=== PATIENT | male | born 1950 | race Caucasian/White ===

== ENCOUNTER 2018-03-13 18:30 | Inpatient (IN) ==
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
[2018-03-13 19:01] LABS: Basophils % 0.3 % (0.1-2.0); Eosinophils # 0.1 K/mm3 (0.0-0.4); Eosinophils % 1.2 % (0.1-12.0); Hematocrit 42.3 % (42.0-52.0); Hemoglobin 13.4 g/dL (14.1-18.0); Lymphocytes # 0.9 K/mm3 (0.7-4.5); Lymphocytes % 14.3 % (10-50); Mean Corpuscular HGB Conc 31.7 g/dL (31.8-35.4); Mean Corpuscular Hemoglobin 25.5 pg (27.0-31.2); Mean Corpuscular Volume 80.4 fl (80-94); Mean Platelet Volume 6.4 fl (7.4-10.4); Monocytes # 0.6 K/mm3 (0.1-1.0); Monocytes % 9.5 % (1.7-9.3); Neutrophils # 4.9 K/mm3 (1.8-7.8); Neutrophils % 74.7 % (37.0-80.0); Red Blood Count 5.27 M/mm3 (4.60-6.20); Red Cell Distribution Width 13.3 % (11.5-17.5); White Blood Count 6.5 K/mm3 (4.8-10.8)
[2018-03-13 19:04] LABS: Platelet Count 644 K/mm3 (142-424)
[2018-03-13 19:23] LABS: Alanine Aminotransferase 12 U/L (12-78); Albumin Level 1.8 gm/dL (3.4-5.0); Albumin/Globulin Ratio 0.3 (1.1-1.8); Alkaline Phosphatase 59 U/L (46-116); Anion Gap 10.2 mEq/L (5-15); Aspartate Amino Transferase 22 U/L (15-37); Bilirubin,Total 0.4 mg/dL (0.2-1.0); Blood Urea Nitrogen 10 mg/dL (7-18); Calcium 8.9 mg/dL (8.5-10.1); Carbon Dioxide 32 mmol/L (21.0-32.0); Chloride 101 mmol/L (98-107); Creatine Kinase 17 U/L (39-308); Globulin 5.3 gm/dl (1.3-3.2); Glucose 110 mg/dL (74-106); Potassium 3.2 mmoL/L (3.5-5.1); Sodium 140 mmol/L (136-145); Total Protein,Serum 7.1 gm/dL (6.4-8.2)
[2018-03-13 20:06] LABS: Thyroid Stimulating Hormone 1.42 uIU/ml (0.358-3.740); Uric Acid 4.1 mg/dL (2.6-7.2)
[2018-03-14 03:17] LABS: Microscopic, Urine URINE MICROSCOPIC (MICROSCOPIC)
[2018-03-14 03:19] LABS: Appearance,Urine CLEAR (Clear); Blood, Urine Negative (Negative); Color,Urine DK YELLOW (Yellow); Glucose,Urine (UA) Negative (Negative); Ketones,Urine TRACE (Negative); Leukocyte Esterase,Urine Negative (Negative); Protein,Urine TRACE (Negative); Specific Gravity, Urine 1.025 (1.005-1.030)
[2018-03-14 03:21] LABS: Bilirubin,Urine Negative (Negative)
[2018-03-14 03:22] LABS: Amorphous Sediment,Urine Trace /lpf; Mucus,Urine 4+ /lpf
[2018-03-14 06:57] LABS: Basophils % 0.6 % (0.1-2.0); Eosinophils # 0.1 K/mm3 (0.0-0.4); Eosinophils % 1.9 % (0.1-12.0); Hematocrit 36.9 % (42.0-52.0); Lymphocytes # 1.2 K/mm3 (0.7-4.5); Lymphocytes % 21.6 % (10-50); Mean Corpuscular HGB Conc 31.1 g/dL (31.8-35.4); Mean Corpuscular Hemoglobin 24.8 pg (27.0-31.2); Mean Corpuscular Volume 79.9 fl (80-94); Mean Platelet Volume 6.2 fl (7.4-10.4); Monocytes # 0.6 K/mm3 (0.1-1.0); Monocytes % 9.8 % (1.7-9.3); Neutrophils # 3.8 K/mm3 (1.8-7.8); Neutrophils % 66.2 % (37.0-80.0); Platelet Count 518 K/mm3 (142-424); Red Blood Count 4.62 M/mm3 (4.60-6.20); Red Cell Distribution Width 13.2 % (11.5-17.5); White Blood Count 5.7 K/mm3 (4.8-10.8)
[2018-03-14 07:06] LABS: Anion Gap 10.4 mEq/L (5-15); Calcium 8.5 mg/dL (8.5-10.1); Potassium 3.4 mmoL/L (3.5-5.1)
[2018-03-14 07:18] LABS: Hemoglobin 11.5 g/dL (14.1-18.0)
--- NOTE | 2018-03-14 07:23 | Pharmacy Consult Notes ---
[facility] Pharmacy VTE Monitoring - Patient Demographics Admission date: 03/13/18 Report Date: 03/14/18 Time: 07:22 Allergies/Adverse Reactions: Patient Allergies Penicillins [PENICILLINS] Allergy (Intermediate, Verified 03/13/18 19:27) I-HIVES Height: 1.78 m Weight: 92.079 kg Patient Problems: Current Active Problems Cellulitis of left leg without foot (Acute) Osteopenia determined by x-ray (Acute) - VTE Risk Labs: VTE Related Lab Results Hgb 11.5 g/dL (14.1-18.0) L D 03/14/18 06:25 Hct 36.9 % (42.0-52.0) L 03/14/18 06:25 Plt Count 518 K/mm3 (142-424) H 03/14/18 06:25 BUN 9 mg/dL (7-18) 03/14/18 06:25 Creatinine 0.71 mg/dL (0.70-1.30) 03/14/18 06:25 Estimated Creat Clear 90 mL/min (50-200) 03/14/18 06:25 VTE Score: 5 VTE Risk Level: Low Risk - Prophylaxis VTE Prophylaxis Ordered?: Yes Types of VTE Prophylaxis: Pharmacological Pharmacologic Type: Enoxaparin - VTE Diagnosis Confirmed Treatment or plan recommended: Continue Current Treatment
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
[2018-03-15 06:52] LABS: Basophils % 0.4 % (0.1-2.0); Eosinophils # 0.1 K/mm3 (0.0-0.4); Eosinophils % 1.7 % (0.1-12.0); Hematocrit 36.4 % (42.0-52.0); Hemoglobin 11.2 g/dL (14.1-18.0); Lymphocytes % 19.1 % (10-50); Mean Corpuscular HGB Conc 30.9 g/dL (31.8-35.4); Mean Corpuscular Hemoglobin 24.6 pg (27.0-31.2); Mean Corpuscular Volume 79.7 fl (80-94); Mean Platelet Volume 6.3 fl (7.4-10.4); Monocytes # 0.5 K/mm3 (0.1-1.0); Monocytes % 8.7 % (1.7-9.3); Neutrophils # 3.8 K/mm3 (1.8-7.8); Neutrophils % 70.1 % (37.0-80.0); Platelet Count 566 K/mm3 (142-424); Red Blood Count 4.56 M/mm3 (4.60-6.20); Red Cell Distribution Width 13.1 % (11.5-17.5); White Blood Count 5.4 K/mm3 (4.8-10.8)
[2018-03-15 06:59] LABS: Anion Gap 10.5 mEq/L (5-15); Calcium 8.6 mg/dL (8.5-10.1); Potassium 3.5 mmoL/L (3.5-5.1)
--- NOTE | 2018-03-15 09:05 | Progress Note ---
Internal Medicine - PN: Subj *Date: 03/15/18 *Time: 09:02 Interval history: Patient not sure how he feels today. He did sleep some during the night but nursing reports he had a period of confusion. He did eat a better breakfast this morning. He states his stomach sometimes hurts. Bowels have not moved since he has been here. He has not been out of bed. White blood cell count is normal. Potassium has normalized. Patient has a bed at [facility] when ready for discharge. Exam Vital signs and Labs for Last 24 Hours: Temp Pulse Resp BP Pulse Ox 100.1 F H 75 20 140/66 92 L 03/15/18 07:41 03/15/18 07:41 03/15/18 07:41 03/15/18 07:41 03/15/18 07:41 Laboratory Results - last 24 hr 03/15/18 06:30: WBC 5.4, RBC 4.56 L, Hgb 11.2 L, Hct 36.4 L, MCV 79.7 L, MCH 24.6 L, MCHC 30.9 L, RDW 13.1, Plt Count 566 H, MPV 6.3 L, Neut % (Auto) 70.1, Lymph % (Auto) 19.1, [place] % (Auto) 8.7, Eos % (Auto) 1.7, Baso % (Auto) 0.4, Neut # (Auto) 3.8, Lymph # (Auto) 1.0, [place] # (Auto) 0.5, Eos # (Auto) 0.1, Baso # (Auto) 0.0 03/15/18 06:30: Sodium 138, Potassium 3.5, Chloride 99, Carbon Dioxide 32, Anion Gap 10.5, BUN 11, Creatinine 0.79, Estimated Creat Clear 90, Estimated GFR 97, Est GFR ( Amer) 117, Glucose 90, Calcium 8.6 I & O for Last 24 hours: Intake & Output 03/12/18 03/13/18 03/14/18 03/15/18 11:59 11:59 11:59 11:59 Intake Total 1754 / 1754 2015 Output Total 350 / 350 1900 / 1900 Balance 1404 / 1404 116 / 116 Weight 203 lb - Constitutional no acute distress - *Routine Respiratory Exam Present: CTA bilaterally (Anteriorly and posteriorly) - *Routine Cardiovascular Exam Present: RRR - *Routine Abdominal Exam Present: soft, normoactive bowel sounds, tenderness Comments: Tender in right and left upper quadrants - *Routine Extremities Exam Comments: Bilateral lower extremities in Unna boots Assessment and Plan (1) Cellulitis of both lower extremities Current visit: Yes Status: Acute Category: Medical Code(s): L03.115 - Cellulitis of right lower limb; L03.116 - Cellulitis of left lower limb (2) Hypertension Current visit: Yes Status: Acute Category: Medical Code(s): I10 - Essential (primary) hypertension (3) Medical non-compliance Current visit: Yes Status: Acute Category: Medical Code(s): Z91.19 - Patient's noncompliance with other medical treatment and regimen (4) Debility Current visit: Yes Status: Acute Category: Medical Code(s): R53.81 - Other malaise (5) Depression Current visit: Yes Status: Acute Category: Medical Code(s): F32.9 - Major depressive disorder, single episode, unspecified - Assessment and plan all Dx Assessment and Plan for all problems:: Will start patient on sertraline. Consult physical therapy.
--- NOTE | 2018-03-15 12:07 | Pharmacy Consult Notes ---
- Pharmacy Consult Date: 03/15/18 Time: 12:05 Referring provider: DR. ROSARIO Reason for Consult:: VANCOMYCIN DOSING Allergies and ADEs:: Allergies Allergy/AdvReac Type Severity Reaction Status Date / Time Penicillins [PENICILLINS] Allergy Intermediate I-HIVES Verified 03/13/18 19:27 Home Medications:: Home Medications Medication Instructions Recorded Confirmed Type No Known Home Medications 03/13/18 03/13/18 History Height: 1.78 m Weight: 92.079 kg Laboratory Results:: Laboratory Results - last 24 hr 03/15/18 06:30: WBC 5.4, RBC 4.56 L, Hgb 11.2 L, Hct 36.4 L, MCV 79.7 L, MCH 24.6 L, MCHC 30.9 L, RDW 13.1, Plt Count 566 H, MPV 6.3 L, Neut % (Auto) 70.1, Lymph % (Auto) 19.1, [place] % (Auto) 8.7, Eos % (Auto) 1.7, Baso % (Auto) 0.4, Neut # (Auto) 3.8, Lymph # (Auto) 1.0, [place] # (Auto) 0.5, Eos # (Auto) 0.1, Baso # (Auto) 0.0 03/15/18 06:30: Sodium 138, Potassium 3.5, Chloride 99, Carbon Dioxide 32, Anion Gap 10.5, BUN 11, Creatinine 0.79, Estimated Creat Clear 90, Estimated GFR 97, Est GFR ( Amer) 117, Glucose 90, Calcium 8.6 Medical History: Reports:: Gastroesophageal Reflux Disease(GERD), Gastrointestinal Bleed, Hypertension, Ulcer Denies:: Cerebrovascular Accident, Diabetes Mellitus Type 1, Diabetes Mellitus Type 2, Home Oxygen, Seizures Assessment and Plan (1) Cellulitis of both lower extremities Current visit: Yes Status: Acute Category: Medical Code(s): L03.115 - Cellulitis of right lower limb; L03.116 - Cellulitis of left lower limb (2) Hypertension Current visit: Yes Status: Acute Category: Medical Code(s): I10 - Essential (primary) hypertension (3) Medical non-compliance Current visit: Yes Status: Acute Category: Medical Code(s): Z91.19 - Patient's noncompliance with other medical treatment and regimen (4) Debility Current visit: Yes Status: Acute Category: Medical Code(s): R53.81 - Other malaise (5) Depression Current visit: Yes Status: Acute Category: Medical Code(s): F32.9 - Major depressive disorder, single episode, unspecified - Assessment and plan all Dx Assessment and Plan for all problems:: BASED ON PATIENT FACTORS, RECOMMEND INITIATING VANCOMYCIN IV AT 1,750MG EVERY 12 HOURS. PHARMACY WILL OBTAIN TROUGH LEVEL PRIOR TO FOURTH DOSE AND WILL ADJUST DOSE APPROPRIATE AT THAT POINT. -JANE ARCOS, SHASHANKD
--- NOTE | 2018-03-16 08:12 | Progress Note ---
Internal Medicine - PN: Subj *Date: 03/16/18 *Time: 08:10 Interval history: Patient states he is feeling well this morning. He is complaining of some pain in his abdomen and his bilateral legs, worse on the right side. He states he slept better last night. He is tolerating breakfast this morning. Exam Vital signs and Labs for Last 24 Hours: Temp Pulse Resp BP Pulse Ox 99.1 F 64 16 135/62 96 03/16/18 03:59 03/16/18 03:59 03/16/18 03:59 03/16/18 03:59 03/16/18 03:59 I & O for Last 24 hours: Intake & Output 03/13/18 03/14/18 03/15/18 03/16/18 11:59 11:59 11:59 11:59 Intake Total 1754 / 1754 2015 Output Total 350 / 350 1900 / 1900 1275 / 1275 Balance 1404 / 1404 116 / 116 691 / 691 Weight 203 lb 203 lb Microbiology Reports for the Last 24 Hours: Microbiology 03/13/18 18:45 Blood Blood Culture - Preliminary Gram Positive Bacilli 03/13/18 18:45 Blood Blood Culture - Preliminary NO GROWTH AFTER 48 HOURS - Constitutional no acute distress - *Routine Respiratory Exam Present: CTA bilaterally - *Routine Cardiovascular Exam Present: RRR - *Routine Abdominal Exam Present: soft, normoactive bowel sounds, tenderness (diffuse) - *Routine Extremities Exam Comments: Legs are wrapped with unna boots bilaterally Assessment and Plan (1) Cellulitis of both lower extremities Current visit: Yes Status: Acute Category: Medical Code(s): L03.115 - Cellulitis of right lower limb; L03.116 - Cellulitis of left lower limb (2) Hypertension Current visit: Yes Status: Acute Category: Medical Code(s): I10 - Essential (primary) hypertension (3) Medical non-compliance Current visit: Yes Status: Acute Category: Medical Code(s): Z91.19 - Patient's noncompliance with other medical treatment and regimen (4) Debility Current visit: Yes Status: Acute Category: Medical Code(s): R53.81 - Other malaise (5) Depression Current visit: Yes Status: Acute Category: Medical Code(s): F32.9 - Major depressive disorder, single episode, unspecified - Assessment and plan all Dx Assessment and Plan for all problems:: Blood culture is growing gram-positive bacilli. Will await final culture and discuss further care with Dr. chacko.
--- NOTE | 2018-03-16 14:33 | Pharmacy Consult Notes ---
- Pharmacy Consult Date: 03/16/18 Time: 14:31 Referring provider: DR. ROSARIO Reason for Consult:: VANCOMYCIN TROUGH LEVEL Allergies and ADEs:: Allergies Allergy/AdvReac Type Severity Reaction Status Date / Time Penicillins [PENICILLINS] Allergy Intermediate I-HIVES Verified 03/13/18 19:27 Home Medications:: Home Medications Medication Instructions Recorded Confirmed Type No Known Home Medications 03/13/18 03/13/18 History Height: 1.78 m Weight: 92.079 kg Laboratory Results:: Laboratory Results - last 24 hr 03/16/18 11:58: Vancomycin Trough 16.5 Medical History: Reports:: Gastroesophageal Reflux Disease(GERD), Gastrointestinal Bleed, Hypertension, Ulcer Denies:: Cerebrovascular Accident, Diabetes Mellitus Type 1, Diabetes Mellitus Type 2, Home Oxygen, Seizures Assessment and Plan (1) Cellulitis of both lower extremities Current visit: Yes Status: Acute Category: Medical Code(s): L03.115 - Cellulitis of right lower limb; L03.116 - Cellulitis of left lower limb (2) Hypertension Current visit: Yes Status: Acute Category: Medical Code(s): I10 - Essential (primary) hypertension (3) Medical non-compliance Current visit: Yes Status: Acute Category: Medical Code(s): Z91.19 - Patient's noncompliance with other medical treatment and regimen (4) Debility Current visit: Yes Status: Acute Category: Medical Code(s): R53.81 - Other malaise (5) Depression Current visit: Yes Status: Acute Category: Medical Code(s): F32.9 - Major depressive disorder, single episode, unspecified - Assessment and plan all Dx Assessment and Plan for all problems:: BASED ON PATIENT FACTORS AND VANCOMYCIN TROUGH LEVEL, RECOMMEND CONTINUING VANCOMYCIN 1750 MG IV Q12H. PHARMACY WILL CONTINUE TO MONITOR CLOSELY AND ADJUST APPROPRIATE.
[2018-03-16 22:38] LABS: Microscopic, Urine URINE MICROSCOPIC (MICROSCOPIC)
[2018-03-16 22:39] LABS: Appearance,Urine Clear (Clear); Bilirubin,Urine Negative (Negative); Blood, Urine Negative (Negative); Color,Urine Yellow (Yellow); Glucose,Urine (UA) Negative (Negative); Ketones,Urine Negative (Negative); PH,Urine 7.5 (5.0-8.5); Protein,Urine Negative (Negative); Specific Gravity, Urine 1.015 (1.005-1.030)
[2018-03-16 22:40] LABS: Bacteria,Urine Trace /lpf; Leukocyte Esterase,Urine Negative (Negative)
--- NOTE | 2018-03-17 08:50 | Progress Note ---
Internal Medicine - PN: Subj *Date: 03/17/18 *Time: 08:48 Interval history: Patient states he feels about the same this morning. He states he rested off and on throughout the night and did eat all of his breakfast this am. He is still complaining of some pain in his legs. They were rewrapped yesterday. His abdominal pain has improved. Exam Vital signs and Labs for Last 24 Hours: Temp Pulse Resp BP Pulse Ox 98.9 F 63 18 144/74 H 92 L 03/17/18 08:00 03/17/18 08:00 03/17/18 08:00 03/17/18 08:00 03/17/18 08:00 Laboratory Results - last 24 hr 03/16/18 11:20: Urine Color Yellow, Urine Appearance Clear, Urine pH 7.5, Ur Specific Osse[place] 1.015, Urine Protein Negative, Urine Glucose (UA) Negative, Urine Ketones Negative, Urine Blood Negative, Urine Nitrate Negative, Urine Bilirubin Negative, Urine Urobilinogen 1.0, Ur Leukocyte Esterase Negative, Urine RBC None, Urine WBC 3-5, Ur Squamous Epith Cells 3-5, Urine Bacteria Trace 03/16/18 11:58: Vancomycin Trough 16.5 I & O for Last 24 hours: Intake & Output 03/14/18 03/15/18 03/16/18 03/17/18 11:59 11:59 11:59 11:59 Intake Total 1754 / 1754 2015 2326 / 2326 2768 / 2768 Output Total 350 / 350 1900 / 1900 1275 / 1275 2725 / 2725 Balance 1404 / 1404 116 / 116 1051 / 1051 43 / 43 Weight 203 lb 203 lb 203 lb Microbiology Reports for the Last 24 Hours: Microbiology 03/14/18 10:13 Leg,Left Gram Stain - Final 03/14/18 10:13 Leg,Left Wound Culture - Preliminary 03/13/18 18:45 Blood Blood Culture - Preliminary 03/16/18 18:45 Blood - Final Not Reportable 03/16/18 18:45 Blood - Final Not Reportable 03/16/18 18:45 Blood - Final Not Reportable 03/14/18 09:50 Leg,Right Gram Stain - Final 03/13/18 18:45 Blood Blood Culture - Preliminary Gram Positive Bacilli - Constitutional no acute distress - *Routine Respiratory Exam Present: CTA bilaterally - *Routine Cardiovascular Exam Present: RRR - *Routine Abdominal Exam Present: soft, normoactive bowel sounds. Absent: tenderness - *Routine Extremities Exam Present: edema (Unna boots in place) Assessment and Plan (1) Cellulitis of both lower extremities Current visit: Yes Status: Acute Category: Medical Code(s): L03.115 - Cellulitis of right lower limb; L03.116 - Cellulitis of left lower limb (2) Hypertension Current visit: Yes Status: Acute Category: Medical Code(s): I10 - Essential (primary) hypertension (3) Medical non-compliance Current visit: Yes Status: Acute Category: Medical Code(s): Z91.19 - Patient's noncompliance with other medical treatment and regimen (4) Debility Current visit: Yes Status: Acute Category: Medical Code(s): R53.81 - Other malaise (5) Depression Current visit: Yes Status: Acute Category: Medical Code(s): F32.9 - Major depressive disorder, single episode, unspecified (6) Bacteremia Current visit: Yes Status: Acute Category: Medical Code(s): R78.81 - Bacteremia - Assessment and plan all Dx Assessment and Plan for all problems:: Blood cultures are growing gram-positive bacilli. Will await final ID and sensitivities. Will continue antibiotics.
--- NOTE | 2018-03-18 09:03 | Progress Note ---
Internal Medicine - PN: Subj *Date: 03/18/18 *Time: 09:01 Interval history: Clinically he is very stable. He needs a dressing change again today. He will be discharged today to go to [facility] nursing facility. He can receive IV antibiotics and dressing changes there. Exam Vital signs and Labs for Last 24 Hours: Temp Pulse Resp BP Pulse Ox 98.9 F 72 18 134/62 93 L 03/18/18 07:40 03/18/18 07:40 03/18/18 07:40 03/18/18 07:40 03/18/18 07:45 I & O for Last 24 hours: Intake & Output 03/15/18 03/16/18 03/17/18 03/18/18 11:59 11:59 11:59 11:59 Intake Total 2015 2326 / 2326 2768 / 2768 3604 / 3604 Output Total 1900 / 1900 1275 / 1275 2725 / 2725 3700 / 3700 Balance 116 / 116 1051 / 1051 43 / 43 -96 / -96 Weight 203 lb 203 lb 194 lb 6 oz Microbiology Reports for the Last 24 Hours: Microbiology 03/13/18 18:45 Blood Blood Culture - Preliminary 03/14/18 10:13 Leg,Left Gram Stain - Final 03/14/18 10:13 Leg,Left Wound Culture - Preliminary Gram Positive Cocci 03/14/18 09:50 Leg,Right Gram Stain - Final 03/14/18 09:50 Leg,Right Wound Culture - Preliminary NO GROWTH AFTER 24 HOURS - Constitutional no acute distress - *Routine Respiratory Exam Present: CTA bilaterally - *Routine Cardiovascular Exam Present: RRR - *Routine Abdominal Exam Present: soft. Absent: tenderness - *Routine Extremities Exam Comments: Dressings are in place. Assessment and Plan (1) Cellulitis of both lower extremities Current visit: Yes Status: Acute Category: Medical Code(s): L03.115 - Cellulitis of right lower limb; L03.116 - Cellulitis of left lower limb (2) Hypertension Current visit: Yes Status: Acute Category: Medical Code(s): I10 - Essential (primary) hypertension (3) Medical non-compliance Current visit: Yes Status: Acute Category: Medical Code(s): Z91.19 - Patient's noncompliance with other medical treatment and regimen (4) Debility Current visit: Yes Status: Acute Category: Medical Code(s): R53.81 - Other malaise (5) Depression Current visit: Yes Status: Acute Category: Medical Code(s): F32.9 - Major depressive disorder, single episode, unspecified (6) Bacteremia Current visit: Yes Status: Acute Category: Medical Code(s): R78.81 - Bacteremia - Assessment and plan all Dx Assessment and Plan for all problems:: Discharged [facility].
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
[2018-03-18 09:30] LABS: Calcium 8.8 mg/dL (8.5-10.1)
--- NOTE | 2018-03-18 11:52 | Progress Note ---
Internal Medicine - PN: Subj *Date: 03/18/18 *Time: 11:51 Exam Vital signs and Labs for Last 24 Hours: Temp Pulse Resp BP Pulse Ox 98.9 F 72 18 134/62 93 L 03/18/18 07:40 03/18/18 07:40 03/18/18 07:40 03/18/18 07:40 03/18/18 07:45 Laboratory Results - last 24 hr 03/18/18 09:09: Sodium 136, Potassium 4.0, Chloride 100, Carbon Dioxide 31, Anion Gap 9.0, BUN 14, Creatinine 0.97, Estimated Creat Clear 86, Estimated GFR 77, Est GFR ( Amer) 93, Glucose 119 H, Calcium 8.8 I & O for Last 24 hours: Intake & Output 03/15/18 03/16/18 03/17/18 03/18/18 23:59 23:59 23:59 23:59 Intake Total 2659 / 2659 2948 / 2948 1982 / 1982 2644 / 2644 Output Total 1950 / 1950 2024 / 2024 3625 / 3625 2099 / 2099 Balance 709 / 709 923 / 923 -1642 / -1642 544 / 544 Weight 92.079 kg 92.079 kg 88.592 kg Microbiology Reports for the Last 24 Hours: Microbiology 03/14/18 09:50 Leg,Right Gram Stain - Final 03/14/18 09:50 Leg,Right Wound Culture - Preliminary NO GROWTH AFTER 48 HOURS 03/13/18 18:45 Blood Blood Culture - Preliminary 03/14/18 10:13 Leg,Left Gram Stain - Final 03/14/18 10:13 Leg,Left Wound Culture - Preliminary Gram Positive Cocci Assessment and Plan (1) Cellulitis of both lower extremities Current visit: Yes Status: Acute Category: Medical Code(s): L03.115 - Ce llulitis of right lower limb; L03.116 - Cellulitis of left lower limb (2) Hypertension Current visit: Yes Status: Acute Category: Medical Code(s): I10 - Essential (primary) hypertension (3) Medical non-compliance Current visit: Yes Status: Acute Category: Medical Code(s): Z91.19 - Patient's noncompliance with other medical treatment and regimen (4) Debility Current visit: Yes Status: Acute Category: Medical Code(s): R53.81 - Other malaise (5) Depression Current visit: Yes Status: Acute Category: Medical Code(s): F32.9 - Major depressive disorder, single episode, unspecified (6) Bacteremia Current visit: Yes Status: Acute Category: Medical Code(s): R78.81 - Bacteremia The patient's infection will respond to the chosen ABx?: Yes Is the patient receiving the right drug, dose, and route?: Yes Could a more targeted ABx be ordered?: No (SENSITIVIES NOT BACK)
[2018-03-18 12:23] LABS: Anion Gap 8.1 mEq/L (5-15); Calcium 8.9 mg/dL (8.5-10.1); Potassium 4.1 mmoL/L (3.5-5.1)
--- NOTE | 2018-03-18 13:55 | Pharmacy Consult Notes ---
- Pharmacy Consult Date: 03/18/18 Time: 13:51 Referring provider: DR. ROSARIO Reason for Consult:: VANCOMYCIN TROUGH LEVEL Allergies and ADEs:: Allergies Allergy/AdvReac Type Severity Reaction Status Date / Time Penicillins [PENICILLINS] Allergy Intermediate I-HIVES Verified 03/13/18 19:27 Home Medications:: Home Medications Medication Instructions Recorded Confirmed Type Sertraline HCl [Zoloft 50mg tablet] 50 mg PO DAILY #30 tablet 03/18/18 Rx Triamterene/Hydrochlorothiazid 1 each PO DAILY #30 tablet 03/18/18 Rx [Maxzide-25 tablet] Vancomycin HCl [Vancomycin 1000mg 1,750 mg IV Q12H #7 vial 03/18/18 Rx Vial] Height: 1.78 m Weight: 88.592 kg Laboratory Results:: Laboratory Results - last 24 hr 03/18/18 09:09: Sodium 136, Potassium 4.0, Chloride 100, Carbon Dioxide 31, Anion Gap 9.0, BUN 14, Creatinine 0.97, Estimated Creat Clear 86, Estimated GFR 77, Est GFR ( Amer) 93, Glucose 119 H, Calcium 8.8 03/18/18 12:05: Vancomycin Trough 25.8 H 03/18/18 12:05: Sodium 136, Potassium 4.1, Chloride 99, Carbon Dioxide 33 H, Anion Gap 8.1, BUN 16, Creatinine 0.95, Estimated Creat Clear 86, Estimated GFR 78, Est GFR ( Amer) 95, Glucose 94 D, Calcium 8.9 Medical History: Reports:: Gastroesophageal Reflux Disease(GERD), Gastrointestinal Bleed, Hypertension, Ulcer Denies:: Cerebrovascular Accident, Diabetes Mellitus Type 1, Diabetes Mellitus Type 2, Home Oxygen, Seizures Assessment and Plan (1) Cellulitis of both lower extremities Current visit: Yes Status: Acute Category: Medical Code(s): L03.115 - Cellulitis of right lower limb; L03.116 - Cellulitis of left lower limb (2) Hypertension Current visit: Yes Status: Acute Category: Medical Code(s): I10 - Essential (primary) hypertension (3) Medical non-compliance Current visit: Yes Status: Acute Category: Medical Code(s): Z91.19 - Patient's noncompliance with other medical treatment and regimen (4) Debility Current visit: Yes Status: Acute Category: Medical Code(s): R53.81 - Other malaise (5) Depression Current visit: Yes Status: Acute Category: Medical Code(s): F32.9 - Major depressive disorder, single episode, unspecified (6) Bacteremia Current visit: Yes Status: Acute Category: Medical Code(s): R78.81 - Bacteremia - Assessment and plan all Dx Assessment and Plan for all problems:: BASED ON PATIENT FACTORS AND VANCOMYCIN TROUGH LEVEL, RECOMMEND CHANGING DOSE AND INTERVAL TO VANCOMYCIN 1500 MG IV Q18H STARTING TOMORROW MORNING AT 0900 FOR 7 MORE DAYS. DISCHARGE MEDICATIONS WERE ALREADY ENTERED BY DR ROSARIO AFTER TROUGH LEVEL RETURNED. CALLED NURSE TO HAVE HER PASS ON NEW DOSE TO CORRECTION. ALSO CALLED [facility] AND GAVE THE SAME MESSAGE TO RN.
== END 2018-03-18 14:00 | DRG 603 ==
LOC: 2ND 18:30 → ER 18:30 → OBSVTOIN 21:19 → 2ND 21:20
PROVIDERS: ADMIT Family Medicine; ATTEND Family Medicine
CPT/HCPCS: 36415; 36569; 71010; 71045; 73590; 73620; 80048; 80053; 80202; 81001; 82550; 82553; 83605; 84443; 84484; 84550; 85025; 87040; 87070; 87077; 87186; 87205; 90471; 90715; 93005; 96365; 97110; 97162; 97530; 99284; C1751; J1956; J3370

== ENCOUNTER → 2018-03-22 10:59 | Outpatient (CLI) | payer MEDICARE, SELFPAY ==
[2018-03-22 12:42] LABS: Anion Gap 8.7 mEq/L (5-15); Blood Urea Nitrogen 14 mg/dL (7-18); Calcium 8.7 mg/dL (8.5-10.1); Carbon Dioxide 36 mmol/L (21.0-32.0); Chloride 97 mmol/L (98-107); Creatinine,Serum 0.88 mg/dL (0.70-1.30); Estimated Glomerular Filt Rate 86 ml/min (>60); GFR (African American) 104 ML/MIN (>60); Glucose 87 mg/dL (74-106); Potassium 3.7 mmoL/L (3.5-5.1); Sodium 138 mmol/L (136-145)
[2018-03-22 13:05] LABS: Vancomycin,Trough 9.3 mcg/ml (10.0-20.0)
== END ==
PROVIDERS: Visit Provider Emergency Medicine
DX: I10 Essential (primary) hypertension (principal); Z51.81 Encounter for therapeutic drug level monitoring
CPT/HCPCS: 36415; 80048; 80202

== ENCOUNTER 2018-05-27 18:20 | Emergency (ER) | payer MEDICARE, MEDICAID, SELFPAY ==
[2018-05-27 18:21] VITALS: BMI 32.4
--- NOTE | 2018-05-27 18:21 | XR_ITS ---
XR chest portable HISTORY: ITS.REASON: chest pain ORDERING PHYSICIAN: Heber Vidal MD PATIENT AGE: 68 years COMPARISON: Portable semiupright chest 04/14/2018 FINDINGS: The cardiomediastinal silhouette and pulmonary vascularity are within normal limits considering a somewhat poor inspiration. The lungs are clear without infiltrates, suspicious nodules, or pleural effusions. No acute bony abnormalities. IMPRESSION: Negative chest, no acute finding
--- NOTE | 2018-05-27 18:22 | HMH.EDGENADL ---
ED Disposition Clinical Impression: Atypical chest pain, Blurry vision Dysphagia Qualifiers: Dysphagia type: unspecified Qualified Code(s): R13.10 - Dysphagia, unspecified Headache Qualifiers: Headache type: unspecified Headache chronicity pattern: episodic headache Intractability: not intractable Qualified Code(s): R51 - Headache Abdominal pain Qualifiers: Abdominal location: unspecified location Qualified Code(s): R10.9 - Unspecified abdominal pain Disposition: [facility] Condition on Discharge: Good Instructions: DI for Atypical Chest Pain, DI for Esophageal Dysphagia Additional Instructions: Additional instructions for CHEST PAIN: See your physician as soon as possible for further evaluation. Return immediately if worsening chest pain, vomiting, shortness of breath, fever, coughing of blood. Referrals: Provider,Referral, [Referring] - - Critical Care Critical Care Time: No Attestation: On , the high probability of a clinically significant, sudden or life threatening deterioration of the following system(s) required my full and direct attention, intervention and personal management. The time I documented below is in addition to time spent performing reported procedures but includes the following listed in this critical care notation. Medical Decision Making - Andi Inquiry Pt receiving controlled substance: No Vital Signs: 05/27/18 18:25 05/27/18 19:05 Temperature 98.0 F Temperature Source Temporal Artery Scan Pulse Rate [Right Radial] 75 69 Respiratory Rate 20 Blood Pressure [Right Arm] 146/73 H 177/77 H Blood Pressure Mean [Right Arm] 97 110 Blood Pressure Source [Right Arm] Automatic Cuff Blood Pressure Position [Right Arm] Sitting 02 Sat by Pulse Oximetry 98 96 Oxygen Delivery Method Room Air - Lab Data Lab Results 05/27/18 18:20: Lipase 153 05/27/18 18:25: WBC 7.2, RBC 4.45 L, Hgb 10.4 L, Hct 34.1 L, MCV 76.5 L, MCH 23.4 L, MCHC 30.6 L, RDW 13.8, Plt Count 529 H, MPV 6.3 L, Neut % (Auto) 71.0, Lymph % (Auto) 19.7, Davidson % (Auto) 7.1, Eos % (Auto) 1.5, Baso % (Auto) 0.6, Neut # (Auto) 5.1, Lymph # (Auto) 1.4, Davidson # (Auto) 0.5, Eos # (Auto) 0.1, Baso # (Auto) 0.1 05/27/18 18:25: Sodium 132 L, Potassium 3.4 L, Chloride 96 L, Carbon Dioxide 33 H, Anion Gap 6.4, BUN 13, Creatinine 0.86, Estimated Creat Clear 100, Estimated GFR 88, Est GFR ( Amer) 106, Glucose 103, Calcium 9.1, Troponin I < 0.02 Result diagrams: 05/27/18 18:25 05/27/18 18:25 - ECG Data Tracing #1 EKG interpreted by Heber Vidal MD: Rhythm: sinus Rate: 77 Left bundle branch block, old - Physician Consults Physician Consulted: Destiny - present Time: 20:10 Reason -: Pt condition Comment/Response: He spoke with patient. Discharge back to intermediate. He will follow-up, plans on ordering swallowing study. Medical Decision Narrative: 7:05 PM: Drank a whole glass of water in the emergency department without any difficulty swallowing and no choking. General Adult HPI - General Stated complaint: chest pain Time Seen by Provider: 05/27/18 18:40 - History of Present Illness HPI narrative: Patient brought in by ambulance from [facility]. Patient is a poor historian. He says that he has been having episodes for 3 weeks, a couple of times a day. He says that he feels like he is choking and coughing, then he gets a pain in his throat that goes up into his head and feels like somebody is hitting him in the head with a 2 pound hammer. He gets blurry vision with it. He says the pain then goes down into his chest and down into his abdomen and around his back and feels like somebody is stabbing him in ripping his abdomen open. He says he slumped over and feels like he is going to pass out. Symptoms typically last about an hour. He says he had 2 episodes today, both resolved. He was seen by Dr. Young for ENT evaluation because of episodes of choking and coughing on Wednesday.
[2018-05-27 18:25] VITALS: BP 146/73; PULSE 75; RESP 20; TEMP 36.7; O2SAT 98; BMI 32.4
--- NOTE | 2018-05-27 18:26 | ED_ITS ---
ED Disposition Clinical Impression: Atypical chest pain, Blurry vision Dysphagia Qualifiers: Dysphagia type: unspecified Qualified Code(s): R13.10 - Dysphagia, unspecified Headache Qualifiers: Headache type: unspecified Headache chronicity pattern: episodic headache Intractability: not intractable Qualified Code(s): R51 - Headache Abdominal pain Qualifiers: Abdominal location: unspecified location Qualified Code(s): R10.9 - Unspecified abdominal pain Disposition: [facility] Condition on Discharge: Good Instructions: DI for Atypical Chest Pain, DI for Esophageal Dysphagia Additional Instructions: Additional instructions for CHEST PAIN: See your physician as soon as possible for further evaluation. Return immediately if worsening chest pain, vomiting, shortness of breath, fever, coughing of blood. Referrals: Provider,Referral, [Referring] - - Critical Care Critical Care Time: No Attestation: On , the high probability of a clinically significant, sudden or life threatening deterioration of the following system(s) required my full and direct attention, intervention and personal management. The time I documented below is in addition to time spent performing reported procedures but includes the following listed in this critical care notation. Medical Decision Making - Andi Inquiry Pt receiving controlled substance: No Vital Signs: 05/27/18 18:25 05/27/18 19:05 Temperature 98.0 F Temperature Source Temporal Artery Scan Pulse Rate [Right Radial] 75 69 Respiratory Rate 20 Blood Pressure [Right Arm] 146/73 H 177/77 H Blood Pressure Mean [Right Arm] 97 110 Blood Pressure Source [Right Arm] Automatic Cuff Blood Pressure Position [Right Arm] Sitting 02 Sat by Pulse Oximetry 98 96 Oxygen Delivery Method Room Air - Lab Data Lab Results 05/27/18 18:20: Lipase 153 05/27/18 18:25: WBC 7.2, RBC 4.45 L, Hgb 10.4 L, Hct 34.1 L, MCV 76.5 L, MCH 23.4 L, MCHC 30.6 L, RDW 13.8, Plt Count 529 H, MPV 6.3 L, Neut % (Auto) 71.0, Lymph % (Auto) 19.7, Clarke % (Auto) 7.1, Eos % (Auto) 1.5, Baso % (Auto) 0.6, Neut # (Auto) 5.1, Lymph # (Auto) 1.4, Clarke # (Auto) 0.5, Eos # (Auto) 0.1, Baso # (Auto) 0.1 05/27/18 18:25: Sodium 132 L, Potassium 3.4 L, Chloride 96 L, Carbon Dioxide 33 H, Anion Gap 6.4, BUN 13, Creatinine 0.86, Estimated Creat Clear 100, Estimated GFR 88, Est GFR ( Amer) 106, Glucose 103, Calcium 9.1, Troponin I < 0.02 Result diagrams: 05/27/18 18:25 05/27/18 18:25 - ECG Data Tracing #1 EKG interpreted by Heber Vidal MD: Rhythm: sinus Rate: 77 Left bundle branch block, old - Physician Consults Physician Consulted: Destiny - present Time: 20:10 Reason -: Pt condition Comment/Response: He spoke with patient. Discharge back to retirement. He will follow-up, plans on ordering swallowing study. Medical Decision Narrative: 7:05 PM: Drank a whole glass of water in the emergency department without any difficulty swallowing and no choking. General Adult HPI - General Stated complaint: chest pain Time Seen by Provider: 05/27/18 18:40 - History of Present Illness HPI narrative: Patient brought in by ambulance from [facility]. Patient is a poor historian. He says that he has been having
[2018-05-27 18:32] LABS: Basophils # 0.1 K/mm3 (0-0.2); Basophils % 0.6 % (0.1-2.0); Eosinophils # 0.1 K/mm3 (0.0-0.4); Eosinophils % 1.5 % (0.1-12.0); Hematocrit 34.1 % (42.0-52.0); Hemoglobin 10.4 g/dL (14.1-18.0); Lymphocytes # 1.4 K/mm3 (0.7-4.5); Lymphocytes % 19.7 % (10-50); Mean Corpuscular HGB Conc 30.6 g/dL (31.8-35.4); Mean Corpuscular Hemoglobin 23.4 pg (27.0-31.2); Mean Corpuscular Volume 76.5 fl (80-94); Mean Platelet Volume 6.3 fl (7.4-10.4); Monocytes # 0.5 K/mm3 (0.1-1.0); Monocytes % 7.1 % (1.7-9.3); Neutrophils # 5.1 K/mm3 (1.8-7.8); Platelet Count 529 K/mm3 (142-424); Red Blood Count 4.45 M/mm3 (4.60-6.20); Red Cell Distribution Width 13.8 % (11.5-17.5); White Blood Count 7.2 K/mm3 (4.8-10.8)
--- NOTE | 2018-05-27 18:39 | PC.NURSE ---
rad at BS
[2018-05-27 18:54] LABS: Anion Gap 6.4 mEq/L (5-15); Blood Urea Nitrogen 13 mg/dL (7-18); Calcium 9.1 mg/dL (8.5-10.1); Carbon Dioxide 33 mmol/L (21.0-32.0); Chloride 96 mmol/L (98-107); Creatinine Clearance Estimated 100 mL/min (50-200); Creatinine,Serum 0.86 mg/dL (0.70-1.30); Estimated Glomerular Filt Rate 88 ml/min (>60); GFR (African American) 106 ML/MIN (>60); Glucose 103 mg/dL (74-106); Potassium 3.4 mmoL/L (3.5-5.1); Sodium 132 mmol/L (136-145); Troponin I < 0.02 ng/ml (0.00-0.06)
[2018-05-27 19:05] VITALS: BP 177/77; PULSE 69; O2SAT 96
[2018-05-27 19:17] LABS: Lipase 153 u/L (73-393)
--- NOTE | 2018-05-27 19:25 | PC.NURSE ---
shift change report given to OZZY Akers
[2018-05-27 20:28] VITALS: BP 170/95; PULSE 68; RESP 20; TEMP 36.6; O2SAT 98
[2018-05-27 22:00] VITALS: BP 177/95; PULSE 68; RESP 21; O2SAT 95
[2018-05-27 22:24] VITALS: BP 177/95; PULSE 60; RESP 20; TEMP 36.6; O2SAT 94
== END 2018-05-27 22:27 ==
PROVIDERS: Emergency Provider Emergency Medicine; PCP Emergency Medicine
DX: R07.89 Other chest pain (principal); H53.8 Other visual disturbances; R13.10 Dysphagia, unspecified; K21.9 Gastro-esophageal reflux disease without esophagitis; E78.5 Hyperlipidemia, unspecified; I10 Essential (primary) hypertension; Z87.891 Personal history of nicotine dependence
CPT/HCPCS: 71045; 80048; 83690; 84484; 85025; 93005; 99284

== ENCOUNTER → 2018-06-03 09:13 | Outpatient (CLI) | payer SELFPAY ==
--- NOTE | 2018-06-03 09:16 | FL_ITS ---
EXAM: Barium swallow/esophagram. INDICATION: ITS.REASON: DYSPHAGIA, COUGH WHILE EATING ORDERING PHYSICIAN: Vlad Dixon MD PATIENT AGE: 68 years COMPARISON: None The patient was not able to stand for the exam. Images performed in the right lateral and right posterior oblique position. The esophagus has an unremarkable appearance. No obstructing lesions. No internal filling defects. No hiatal hernia. Fluoroscopy time: 42 seconds. IMPRESSION: Unremarkable barium swallow
== END ==
PROVIDERS: PCP Emergency Medicine; Visit Provider Emergency Medicine
DX: R13.10 Dysphagia, unspecified (principal)
CPT/HCPCS: 74220

== ENCOUNTER → 2018-08-09 10:04 | Outpatient (CLI) | payer MEDICARE, MEDICAID, SELFPAY | PROVIDERS: PCP Emergency Medicine; Visit Provider Physician Assistant | DX: I44.7 Left bundle-branch block, unspecified (principal); R55 Syncope and collapse; R06.09 Other forms of dyspnea | CPT/HCPCS: 93270 ==

== ENCOUNTER → 2018-11-07 10:20 | Outpatient (POV) | payer MEDICARE, MEDICAID, SELFPAY | PROVIDERS: PCP Emergency Medicine; Visit Provider Nurse Practitioner Family | DX: Z00.00 Encounter for general adult medical examination without abnormal findings (principal) ==

== ENCOUNTER → 2018-12-10 10:00 | Outpatient (CLI) | payer MEDICARE, MEDICAID, SELFPAY ==
[2018-12-13 12:07] LABS: Occult Blood,Stool Negative (Negative)
== END ==
PROVIDERS: Visit Provider Internal Medicine Gastroenterology
DX: D50.9 Iron deficiency anemia, unspecified (principal)
CPT/HCPCS: 82272; G0328

== ENCOUNTER → 2018-12-11 10:00 | Outpatient (CLI) | payer MEDICARE, MEDICAID, SELFPAY ==
[2018-12-13 12:07] LABS: Occult Blood,Stool Negative (Negative)
== END ==
PROVIDERS: Visit Provider Internal Medicine Gastroenterology
DX: D50.9 Iron deficiency anemia, unspecified (principal)
CPT/HCPCS: 82272; G0328

== ENCOUNTER → 2018-12-12 10:00 | Outpatient (CLI) | payer MEDICARE, MEDICAID, SELFPAY ==
[2018-12-13 12:07] LABS: Occult Blood,Stool Negative (Negative)
== END ==
LOC: LAB 12-13 10:32 → LAB.DROPOF 12-13 10:33
PROVIDERS: Visit Provider Internal Medicine Gastroenterology
DX: D50.9 Iron deficiency anemia, unspecified (principal)
CPT/HCPCS: 82272; G0328

== ENCOUNTER 2019-03-05 04:07 | Observation (INO) ==
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
[2019-03-05 04:28] LABS: Basophils % 0.3 % (0.1-2.0); Hematocrit 40.9 % (42.0-52.0); Lymphocytes # 1.1 K/mm3 (0.7-4.5)
[2019-03-05 04:33] LABS: Basophils # 0.1 K/mm3 (0-0.2); Eosinophils # 0.1 K/mm3 (0.0-0.4); Hemoglobin 11.8 g/dL (14.1-18.0); Lymphocytes % 8.2 % (10-50); Mean Corpuscular HGB Conc 28.8 g/dL (31.8-35.4); Mean Platelet Volume 7.4 fl (7.4-10.4); Monocytes # 0.7 K/mm3 (0.1-1.0); Monocytes % 4.9 % (1.7-9.3); Neutrophils % 85.7 % (37.0-80.0); Platelet Count 482 K/mm3 (142-424); Red Blood Count 5.24 M/mm3 (4.60-6.20); Red Cell Distribution Width 15.7 % (11.5-17.5)
[2019-03-05 04:42] LABS: Anion Gap 10.2 mEq/L (5-15); Blood Urea Nitrogen 21 mg/dL (7-18); Calcium 8.7 mg/dL (8.5-10.1); Carbon Dioxide 35 mmol/L (21.0-32.0); Chloride 97 mmol/L (98-107); Glucose 108 mg/dL (74-106); Sodium 138 mmol/L (136-145)
[2019-03-05 04:45] LABS: Eosinophils % 1 % (0-3); Lymphocytes % 6 % (10-50); Monocytes % 2 % (2-9); Neutrophils % 87 % (42-76); Total Cells Counted 100
[2019-03-05 04:46] LABS: Hypochromasia 2+; Rouleaux 1+
--- NOTE | 2019-03-05 09:07 | Electrocardiograph Report ---
APPROVED REPORT Exam: Resting ECG HR:69 bpm ECG Measurements Heart Rate 69 AXES UT 178 P 51 QRSd 160 QRS 9 QT 460 T109 QTc 492 <Conclusion> Normal sinus rhythm Left bundle branch block Abnormal ECG Electronically signed by : Bari Villatoro, 03/05/2019 09:07:06
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
--- NOTE | 2019-03-05 11:28 | Pharmacy Consult Notes ---
[facility] Pharmacy VTE Monitoring - Patient Demographics Admission date: 03/05/19 Report Date: 03/05/19 Time: 11:27 Allergies/Adverse Reactions: Patient Allergies Penicillins [PENICILLINS] Allergy (Intermediate, Verified 03/05/19 06:41) I-HIVES Height: 1.78 m Weight: 116.261 kg Patient Problems: Current Active Problems Chest pain (Acute) COPD exacerbation (Acute) Acute bronchitis (Acute) - VTE Risk Labs: VTE Related Lab Results Hgb 11.8 g/dL (14.1-18.0) L 03/05/19 04:00 Hct 40.9 % (42.0-52.0) L 03/05/19 04:00 Plt Count 482 K/mm3 (142-424) H 03/05/19 04:00 BUN 21 mg/dL (7-18) H 03/05/19 04:00 Creatinine 0.89 mg/dL (0.70-1.30) 03/05/19 04:00 Estimated Creat Clear 112 mL/min (50-200) 03/05/19 04:00 VTE Score: 5 VTE Risk Level: Low Risk - Prophylaxis Types of VTE Prophylaxis: TEDS Knee High ([place] ORDERED)
--- NOTE | 2019-03-06 09:24 | Discharge Summary ---
General - General Admission date:: 03/05/19 Discharge date: 03/06/19 HPI HPI: this wm was sent rought in by ambulance from long term. Patient states that about 3 PM yesterday he started having some chest pains. Also complains of headache and shortness of breath. Says that if he holds his head up off the bed he feels like he can breathe better, but if he lays his head back he feels short of breath. States that he feels at times like he is going to pass out. States that he has a cough productive of green sputum. No fever that he is aware of. He has COPD. He says he was on oxygen at the long term previously, but just stopped using it on his own. He says mostly he used to wear it at night. He is a former smoker half a pack to three quarters of a pack per day for over 50 years. Says that he quit smoking last year. He also has a history of dysphagia and sees Dr. Garcia. He was given aspirin, nitroglycerin, and a DuoNeb treatment during transport. He feels like the nebulizer treatment helped his breathing. pt was admitted for ivf and pulmonary treatment Hospital Course Hospital Course: Laboratory Results - last 24 hr 03/05/19 10:20: Troponin I < 0.02 Laboratory Tests 03/05/19 03/05/19 03/05/19 04:00 04:00 04:00 WBC 14.0 H RBC 5.24 Hgb 11.8 L Hct 40.9 L MCV 78.0 L MCH 22.5 L MCHC 28.8 L RDW 15.7 Plt Count 482 H MPV 7.4 Neut % (Auto) 85.7 H Lymph % (Auto) 8.2 L [place] % (Auto) 4.9 Eos % (Auto) 1.0 Baso % (Auto) 0.3 Neut # (Auto) 12.0 H Lymph # (Auto) 1.1 [place] # (Auto) 0.7 Eos # (Auto) 0.1 Baso # (Auto) 0.1 Total Counted 100 Neutrophils % (Manual) 87 H Band Neutrophils % 4.0 Lymphocytes % (Manual) 6 L Monocytes % (Manual) 2 Eosinophils % (Manual) 1 Platelet Estimate Slight increase Hypochromasia 2+ Microcytosis 2+ Rouleaux 1+ Sodium 138 Potassium 4.2 Chloride 97 L Carbon Dioxide 35 H Anion Gap 10.2 BUN 21 H Creatinine 0.89 Estimated Creat Clear 112 Estimated GFR 85 Est GFR ( Amer) 102 Glucose 108 H Lactate Calcium 8.7 Troponin I < 0.02 B-Natriuretic Peptide 135 H Influenza Type A Ag Influenza Type B Ag 03/05/19 03/05/19 03/05/19 04:40 04:50 07:15 WBC RBC Hgb Hct MCV MCH MCHC RDW Plt Count MPV Neut % (Auto) Lymph % (Auto) [place] % (Auto) Eos % (Auto) Baso % (Auto) Neut # (Auto) Lymph # (Auto) [place] # (Auto) Eos # (Auto) Baso # (Auto) Total Counted Neutrophils % (Manual) Band Neutrophils % Lymphocytes % (Manual) Monocytes % (Manual) Eosinophils % (Manual) Platelet Estimate Hypochromasia Microcytosis Rouleaux Sodium Potassium Chloride Carbon Dioxide Anion Gap BUN Creatinine Estimated Creat Clear Estimated GFR Est GFR ( Amer) Glucose Lactate 1.0 Calcium Troponin I < 0.02 B-Natriuretic Peptide Influenza Type A Ag Negative Influenza Type B Ag Negative 03/05/19 10:20 WBC RBC Hgb Hct MCV MCH MCHC RDW Plt Count MPV Neut % (Auto) Lymph % (Auto) [place] % (Auto) Eos % (Auto) Baso % (Auto) Neut # (Auto) Lymph # (Auto) [place] # (Auto) Eos # (Auto) Baso # (Auto) Total Counted Neutrophils % (Manual) Band Neutrophils % Lymphocytes % (Manual) Monocytes % (Manual) Eosinophils % (Manual) Platelet Estimate Hypochromasia Microcytosis Rouleaux Sodium Potassium Chloride Carbon Dioxide Anion Gap BUN Creatinine Estimated Creat Clear Estimated GFR Est GFR ( Amer) Glucose Lactate Calcium Troponin I < 0.02 B-Natriuretic Peptide Influenza Type A Ag Influenza Type B Ag Lab Results 03/05/19 04:00: WBC 14.0 H, RBC 5.24, Hgb 11.8 L, Hct 40.9 L, MCV 78.0 L, MCH 22.5 L, MCHC 28.8 L, RDW 15.7, Plt Count 482 H, MPV 7.4, Neut % (Auto) 85.7 H, Lymph % (Auto) 8.2 L, [place] % (Auto) 4.9, Eos % (Auto) 1.0, Baso % (Auto) 0.3, Neut # (Auto) 12.0 H, Lymph # (Auto) 1.1, [place] # (Auto) 0.7, Eos # (Auto) 0.1, Baso # (Auto) 0.1, Total Counted 100, Neutrophils % (Manual) 87 H, Band Neutrophils % 4.0, Lymphocytes % (Manual) 6 L, Monocytes % (Manual) 2, Eosinophils % (Manual) 1, Platelet Estimate Slight increase, Hypochromasia 2+, Microcytosis 2+, Rouleaux 1+ 03/05/19 04:00: Sodium 138, Potassium 4.2, Chloride 97 L, Carbon Dioxide 35 H, Anion Gap 10.2, BUN 21 H, Creatinine 0.89, Estimated Creat Clear 112, Estimated GFR 85, Est GFR ( Amer) 102, Glucose 108 H, Calcium 8.7, Troponin I < 0.02 03/05/19 04:00: B-Natriuretic Peptide 135 H 03/05/19 04:40: Lactate 1.0 03/05/19 04:50: Influenza Type A Ag Negative, Influenza Type B Ag Negative 03/05/19 07:15: Troponin I < 0.02 03/05/19 10:20: Troponin I < 0.02 Microbiology Results 03/05/19 06:52 Sputum - Expectorated Sputum Gram Stain - Final 03/05/19 06:52 Sputum - Expectorated Sputum Sputum Culture - Pending 03/05/19 04:40 Blood Blood Culture - Pending 03/05/19 04:40 Blood Blood Culture - Pending Microbiology 03/05/19 06:52 Sputum - Expectorated Sputum Gram Stain - Final Patient sitting up in the bed states no complaints at this time. Patient stating he is eating and drinking well. Chest x-ray shows no acute findings Will discharge back to [place] today on a short course of steroids and antibiotics while waiting final sputum culture. Lower extremities with edema will ask PT at [place] [facility] to apply Unna boots for compression. Objective Vital signs: Temp Pulse Resp BP Pulse Ox 98.8 F 73 22 137/73 91 L 03/06/19 08:00 03/06/19 08:00 03/06/19 08:00 03/06/19 08:00 03/06/19 08:00 no acute distress, chronically ill appearing - *Routine HEENT Exam Head: Present: normocephalic Eye: Present: PERRL ENT: Present: mucous membranes moist - *Routine Respiratory Exam Present: CTA bilaterally - *Routine Cardiovascular Exam Present: RRR - *Routine Abdominal Exam Present: soft, normoactive bowel sounds. Absent: tenderness - *Routine Extremities Exam Present: edema, full ROM - *Routine Skin Exam Present: intact - *Routine Neurological Exam Present: alert, oriented X3 - Routine Psychiatric Exam Present: normal affect Results Labs on day of discharge: Labs from last 24 hours 03/05/19 10:20 Troponin I < 0.02 - Additional Comments Rounded with Dr. Dixon all orders per Destiny DS: Diagnosis - Discharge Diagnosis (1) Obesity (BMI 30-39.9) Status: Acute (2) COPD exacerbation Status: Acute (3) CAD (coronary artery disease) Status: Acute (4) LBBB (left bundle branch block) Status: Chronic Discharge Plan - Patient Discharge Instructions ACTIVITY: Continue current activity DIET: continue same diet Patient Instructions: Chronic Obstructive Pulmonary Disease, Acute Bronchitis, Angina, DI for Chronic Obstructive Pulmonary Disease, DI for Angina, DI for Acute Bronchitis - Follow up Plan Disposition: er [facility] Home Medications: Home Medications Medication Instructions Recorded Confirmed Type acetaminophen 300 mg-codeine 30 mg 1 tab PO TID 06/08/18 03/05/19 History tablet omeprazole magnesium 20 mg 20 mg PO DAILY 06/08/18 03/05/19 History tablet,delayed release sennosides 8.6 mg-docusate sodium 1 tab PO BID 06/08/18 03/05/19 History 50 mg tablet isosorbide mononitrate 30 mg 30 mg PO DAILY 08/09/18 03/05/19 History tablet,extended release 24 hr Metoprolol Succinate 25 mg PO DAILY 09/17/18 03/05/19 History Ferrous Gluconate [Ferrous 324 mg PO DAILY 01/12/19 03/05/19 History Gluconate 324mg Tab] Furosemide [Furosemide 40MG tAB] 40 mg PO DAILY 01/12/19 03/05/19 History Potassium Chloride [Klor-Con M20] 20 meq PO DAILY 01/12/19 03/05/19 History Acetaminophen 500 mg PO Q4HP PRN 03/05/19 03/05/19 History Ipratropium/Albuterol Sulfate 3 ml IH Q6HP PRN 03/05/19 03/05/19 History [Duoneb 3mL neb] Methylcellulose (with Sugar) 1 tbsp PO DAILY 03/05/19 03/05/19 History [Citrucel Powder] Ondansetron HCl [Zofran 4mg Tab*] 4 mg PO TID PRN 03/05/19 03/05/19 History Polyethylene Glycol 3350 17 gm PO DAILY 03/05/19 03/05/19 History [Powderlax] Sertraline HCl 25 mg PO DAILY 03/05/19 03/05/19 History Azithromycin [Zithromax 250mg 250 mg PO DIRECTED #6 tab 03/06/19 Rx tab] predniSONE [Prednisone 20mg 20 mg PO BID #10 tab 03/06/19 Rx Tab] Prescriptions/Medication Reconciliation: New Azithromycin [Zithromax 250mg tab] 250 mg PO DIRECTED #6 tab predniSONE [Prednisone 20mg Tab] 20 mg PO BID #10 tab Continued omeprazole magnesium 20 mg tablet,delayed release 20 mg PO DAILY sennosides 8.6 mg-docusate sodium 50 mg tablet 1 tab PO BID isosorbide mononitrate 30 mg tablet,extended release 24 hr 30 mg PO DAILY acetaminophen 300 mg-codeine 30 mg tablet 1 tab PO TID Ferrous Gluconate [Ferrous Gluconate 324mg Tab] 324 mg PO DAILY Potassium Chloride [Klor-Con M20] 20 meq PO DAILY Methylcellulose (with Sugar) [Citrucel Powder] 1 tbsp PO DAILY Polyethylene Glycol 3350 [Powderlax] 17 gm PO DAILY Ondansetron HCl [Zofran 4mg Tab*] 4 mg PO TID PRN PRN Reason: Nausea And Vomiting Metoprolol Succinate 25 mg PO DAILY Furosemide [Furosemide 40MG tAB] 40 mg PO DAILY Ipratropium/Albuterol Sulfate [Duoneb 3mL neb] 3 ml IH Q6HP PRN PRN Reason: Shortness Of Breath Or Wheezing Acetaminophen 500 mg PO Q4HP PRN PRN Reason: pain Sertraline HCl 25 mg PO DAILY - Problem Reconciliation Problems Reviewed?: Yes
== END 2019-03-06 11:04 ==
LOC: 2ND 04:07 → ER 04:07 → 2ND 06:16
PROVIDERS: ADMIT Internal Medicine Adolescent Medicine; ATTEND Emergency Medicine
CPT/HCPCS: 71010; 71045; 80048; 83605; 83880; 84484; 85007; 85025; 87040; 87070; 87205; 87275; 87276; 93005; 94640; 94761; 96365; 96375; 99284; G0378; J1956

== ENCOUNTER 2019-05-08 11:30 | Observation (INO) ==
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
[2019-05-08 11:58] LABS: Alanine Aminotransferase 10 U/L (12-78); Albumin Level 3.9 g/dl (3.5-5.0); Alkaline Phosphatase 47 U/L (38-126); Aspartate Amino Transferase 24 U/L (17-59); Bilirubin,Total 0.3 mg/dl (0.2-1.3); Blood Urea Nitrogen 17 mg/dl (9-20); Calcium 9.7 mg/dl (8.4-10.2); Chloride 92 mmol/L (98-107); Globulin 3.8 g/dL (1.3-3.2); Glucose 91 mg/dl (74-100); Sodium 138 mmol/L (136-145); Total Protein,Serum 7.7 g/dl (6.3-8.2)
[2019-05-08 11:59] LABS: Anion Gap 10.1 mEq/L (5-15); Basophils % 0.4 % (0.1-2.0); Eosinophils # 0.2 K/mm3 (0.0-0.4); Eosinophils % 2.3 % (0.1-12.0); Hemoglobin 11.5 g/dL (14.1-18.0); Lymphocytes # 1.3 K/mm3 (0.7-4.5); Lymphocytes % 19.8 % (10-50); Mean Corpuscular HGB Conc 27.9 g/dL (31.8-35.4); Mean Corpuscular Volume 80.6 fl (80-94); Monocytes # 0.6 K/mm3 (0.1-1.0); Monocytes % 8.9 % (1.7-9.3); Neutrophils # 4.6 K/mm3 (1.8-7.8); Neutrophils % 68.7 % (37.0-80.0); Platelet Count 483 K/mm3 (142-424); Red Blood Count 5.08 M/mm3 (4.60-6.20); Red Cell Distribution Width 14.8 % (11.5-17.5); White Blood Count 6.8 K/mm3 (4.8-10.8)
--- NOTE | 2019-05-08 16:04 | Electrocardiograph Report ---
APPROVED REPORT Exam: Resting ECG HR:64 bpm ECG Measurements Heart Rate 64 AXES NM 158 P 68 QRSd 170 QRS 59 QT 488 T260 QTc 503 <Conclusion> Normal sinus rhythm Left bundle branch block Abnormal ECG Electronically signed by : Keegan Celestin, 05/08/2019 16:04:15
--- NOTE | 2019-05-08 17:00 | Cardiology Report ---
APPROVED REPORT EXAM: Comprehensive 2D, Doppler, and color-flow Echocardiogram Performance Tester: Hue Joseph CRT Ht: 5 ft 6 in Wt: 220lbs BSA: 2.08 BP: 151/89 mmHg Indications: Chest Pain, Shortness of Breath, CAD, Hyperlipidemia, Hypertension/HDD 2D Dimensions LVOT 2.12 cm (M/F) 1.5-2.5 LV Diastology E/A Ratio 1.22 Mitral Valve MV A Velocity 56.00 (40-130 cm/s) Left Ventricle Left atrium is mildly enlarged, left ventricle is normal size, mild concentric left ventricular hypertrophy, visually estimated ejection fraction 55% with no obvious regional wall motion abnormality, endocardial surfaces are poorly visualized. Grade 1 diastolic dysfunction seen without tissue Doppler evidence of raise left atrial pressure. Right Ventricle Right atrium and right ventricular normal size and contractility. Aortic Valve Aortic valve is thickened and calcified leaflet chordae display good mobility, there is no aortic stenosis, there is mild aortic insufficiency. Mitral Valve Mitral valve leaflets are minimally thickened, there is mild mitral regurgitation. Tricuspid Valve Tricuspid valve is grossly normal, there is mild tricuspid regurgitation, tricuspid regurgitation jet velocity is inadequate for calculation of the right ventricular systolic pressure. Pulmonic Valve Pulmonic valve is poorly visualized. Great Vessels Aortic root is normal size. Pericardium No significant pericardial effusion noted. Conclusion 1. Mildly enlarged left atrium, normal left ventricular size, mild concentric left ventricular hypertrophy, visually estimated ejection fraction 55% with no regional wall motion abnormality, grade 1 diastolic dysfunction seen without tissue Doppler evidence of raise left atrial pressure. 2. Mild aortic, mild mitral and tricuspid regurgitation. 3. No significant pericardial effusion noted. Electronically signed by : Manan Alvarez, 05/08/2019 17:00:33
--- NOTE | 2019-05-08 19:11 | Cardiology Report ---
APPROVED REPORT Bilateral Lower Extremity Venous Study for DVT. Head Of English: LILLIAN ChingT Indications Lower Extremity Edema: Bilateral Pulmonary Embolism Shortness of breath LE swelling, new PE Risk Factors Immobility Obesity History of Smoking Vein Imaging CFV (R): compressive, spontaneous, phasic, augmentation FEM (R): compressive, spontaneous, phasic, augmentation POP (R): compressive, spontaneous, phasic, augmentation PTV (R): Compressible GSV (R): Compressible Peroneals (R):Compressible GAS (R): Compressible CFV (L): compressive, spontaneous, phasic, augmentation FEM (L): compressive, spontaneous, phasic, augmentation POP (L): compressive, spontaneous, phasic, augmentation PTV (L): Compressible GSV (L): Compressible Peroneals (L):Compressible GAS (L): Compressible Findings Study suggests no evidence of DVT seen in the bilateral lower extremites. Study suggests no evidence of SVT seen in the bilateral lower extremites. Conclusion Study suggests no evidence of DVT seen in the bilateral lower extremites. Study suggests no evidence of SVT seen in the bilateral lower extremites. Electronically signed by : Valente Jiménez, 05/08/2019 19:10:50
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
--- NOTE | 2019-05-09 08:06 | Pharmacy Consult Notes ---
[facility] Pharmacy VTE Monitoring - Patient Demographics Admission date: 05/09/19 Report Date: 05/09/19 Time: 08:06 Allergies/Adverse Reactions: Patient Allergies Penicillins [PENICILLINS] Allergy (Intermediate, Verified 04/24/19 13:33) I-HIVES Height: 1.78 m Weight: 120.202 kg Patient Problems: Current Active Problems Pulmonary embolism, bilateral (Acute) COPD (chronic obstructive pulmonary disease) (Acute) Left bundle branch block (LBBB) (Acute) Anemia (Acute) Thrombocytosis (Acute) Obesity (BMI 30-39.9) (Chronic) CHF (congestive heart failure) (Chronic) Debility (Chronic) Wheelchair bound (Chronic) Dyspnea (Acute) - VTE Risk Labs: VTE Related Lab Results Hgb 11.5 g/dL (14.1-18.0) L 05/08/19 11:30 Hct 41.0 % (42.0-52.0) L 05/08/19 11:30 Plt Count 483 K/mm3 (142-424) H 05/08/19 11:30 BUN 17 mg/dl (9-20) 05/08/19 11:30 Creatinine 0.70 mg/dl (0.66-1.25) 05/08/19 11:30 Estimated Creat Clear 96 mL/min (50-200) 05/08/19 11:30 Was VTE Risk Assessment Performed: Yes VTE Score: 7 VTE Risk Level: Moderate Risk Clinical Trial Participant: No - Prophylaxis VTE Prophylaxis Ordered?: Yes Types of VTE Prophylaxis: TEDS Knee High, Pharmacological Pharmacologic Type: Enoxaparin
--- NOTE | 2019-05-09 09:02 | Discharge Summary ---
General - General Admission date:: 05/08/19 Discharge date: 05/09/19 HPI HPI: 69-year-old male patient sitting up in chair respirations easy even. He denies chest pain or shortness of breath at this time. Discussed discharge back to [facility] he is agreeable to this this wm sent from pending sale to [facility] to the ed -69-year-old male with history of COPD presenting to the emergency department with chest pain. Pain is located on the left side of his chest and radiates into his left arm. He has had intermittent pain for at least the last week. It is sharp in onset and lasts for minutes at a time. Relieved by itself. He has not noticed association with exertion or inspiration. Pain does not radiate into his back, no lower extremity numbness or tingling. No recent illness, fevers, chills, cough, nausea, vomiting. Never had a heart attack. No known history of DVT or PE. He takes high blood pressure medication, no other blood thinners. n summary this is a 69-year-old male with history of COPD presenting to the emergency department chest pain. Patient is in no acute distress on arrival to the emergency department. Vital signs are stable. Differential diagnoses include COPD exacerbation, bronchitis, upper respiratory infection. Given patient's mobility, I have concern for pulmonary embolus. Also cannot exclude thoracic aortic dissection. Plan to obtain CBC, CMP, chest x-ray, EKG, troponin profile, BNP, d-dimer and reassess. Patient given aspirin and DuoNeb. Laboratory results remarkable for significantly elevated d-dimer at 1980. BNP slightly elevated. Troponin within normal limits. Other lab results unremarkable. Obtain CT PE protocol. CT PE was interpreted as peripheral pulmonary emboli. This is consistent with patient's new dyspnea and tachypnea. He was given one-time dose of Lovenox. Would benefit from cardiac echo as well as lower extremity Doppler ultrasounds. Patient was admitted for treatment (Per Dr. Marcano) Hospital Course Hospital Course: this wm sent from pending sale to [facility] to the ed -69-year-old male with history of COPD presenting to the emergency department with chest pain. Pain is located on the left side of his chest and radiates into his left arm. He has had intermittent pain for at least the last week. It is sharp in onset and lasts for minutes at a time. Relieved by itself. He has not noticed association with exertion or inspiration. Pain does not radiate into his back, no lower extremity numbness or tingling. No recent illness, fevers, chills, cough, nausea, vomiting. Never had a heart attack. No known history of DVT or PE. He takes high blood pre ssure medication, no other blood thinners. n summary this is a 69-year-old male with history of COPD presenting to the emergency department chest pain. Patient is in no acute distress on arrival to the emergency department. Vital signs are stable. Differential diagnoses include COPD exacerbation, bronchitis, upper respiratory infection. Given patient's mobility, I have concern for pulmonary embolus. Also cannot exclude thoracic aortic dissection. Plan to obtain CBC, CMP, chest x-ray, EKG, troponin profile, BNP, d-dimer and reassess. Patient given aspirin and DuoNeb. Laboratory results remarkable for significantly elevated d-dimer at 1979. BNP slightly elevated. Troponin within normal limits. Other lab results unremarkable. Obtain CT PE protocol. CT PE was interpreted as peripheral pulmonary emboli. This is consistent with patient's new dyspnea and tachypnea. He was given one-time dose of Lovenox. Would benefit from cardiac echo as well as lower extremity Doppler ultrasounds. Patient was admitted for treatment (Per Dr. Marcano) 05/[address]: IMPRESSION: Filling defects in peripheral pulmonary arterial branches bilaterally suspicious for pulmonary emboli. Findings were called to the emergency department approximately 1:57 p.m. Persistent pulmonary opacities left lung field as described. Chronic infiltrate and/or atelectasis should be considered Healed granulomatous disease with small pulmonary nodules not definitely changed favored to be benign granulomas. Nonspecific mild lymphadenopathy similar to previous exam Atherosclerosis including coronary calcification. Dictated by: Dr. Jiménez 05/07 ECHO: Conclusion 1. Mildly enlarged left atrium, normal left ventricular size, mild concentric left ventricular hypertrophy, visually estimated ejection fraction 55% with no regional wall motion abnormality, grade 1 diastolic dysfunction seen without tissue Doppler evidence of raise left atrial pressure. 2. Mild aortic, mild mitral and tricuspid regurgitation. 3. No significant pericardial effusion noted. Electronically signed by : Manan Alvarez 05/08/19 Venous Dop: Conclusion Study suggests no evidence of DVT seen in the bilateral lower extremites. Study suggests no evidence of SVT seen in the bilateral lower extremites. Electronically signed by : Dr. Jiménez, We will discharge back to [facility] today on Xarelto Objective Vital signs: Temp Pulse Resp BP Pulse Ox 98.2 F 78 20 180/86 H 97 05/09/19 07:40 05/09/19 07:40 05/09/19 07:40 05/09/19 07:40 05/09/19 07:40 no acute distress - *Routine HEENT Exam Head: Present: normocephalic Eye: Present: normal accommodation ENT: Present: mucous membranes moist - *Routine Neck Exam Present: full ROM. Absent: JVD - *Routine Respiratory Exam Present: wheezes. Absent: accessory muscle use - *Routine Cardiovascular Exam Present: RRR - *Routine Abdominal Exam Present: soft, normoactive bowel sounds. Absent: tenderness, firm - *Routine Extremities Exam Present: edema Comments: BLE Edema - Routine Back/Spine/Pelvis Exam Back/Spine: Absent: CVA tenderness - *Routine Skin Exam Present: intact, warm. Absent: cyanosis - *Routine Neurological Exam Present: alert - Routine Psychiatric Exam Present: normal affect Results Labs on day of discharge: Labs from last 24 hours 05/08/19 05/08/19 05/08/19 14:45 11:30 11:30 WBC RBC Hgb Hct MCV MCH MCHC RDW Plt Count MPV Neut % (Auto) Lymph % (Auto) [place] % (Auto) Eos % (Auto) Baso % (Auto) Neut # (Auto) Lymph # (Auto) [place] # (Auto) Eos # (Auto) Baso # (Auto) D-Dimer 1980 H* Sodium Potassium Chloride Carbon Dioxide Anion Gap BUN Creatinine Estimated Creat Clear Estimated GFR Est GFR ( Amer) Glucose Calcium Total Bilirubin AST ALT Alkaline Phosphatase Troponin I < 0.01 NT-Pro-B Natriuret Pep 650 H Total Protein Albumin Globulin Albumin/Globulin Ratio 05/08/19 05/08/19 11:30 11:30 WBC 6.8 RBC 5.08 Hgb 11.5 L Hct 41.0 L MCV 80.6 MCH 22.5 L MCHC 27.9 L RDW 14.8 Plt Count 483 H MPV 8.0 Neut % (Auto) 68.7 Lymph % (Auto) 19.8 [place] % (Auto) 8.9 Eos % (Auto) 2.3 Baso % (Auto) 0.4 Neut # (Auto) 4.6 Lymph # (Auto) 1.3 [place] # (Auto) 0.6 Eos # (Auto) 0.2 Baso # (Auto) 0.0 D-Dimer Sodium 138 Potassium 4.1 Chloride 92 L Carbon Dioxide Anion Gap 10.1 BUN 17 Creatinine 0.70 Estimated Creat Clear 96 Estimated GFR 111 Est GFR ( Amer) 135 Glucose 91 Calcium 9.7 Total Bilirubin 0.3 AST 24 ALT 10 L Alkaline Phosphatase 47 Troponin I < 0.01 NT-Pro-B Natriuret Pep Total Protein 7.7 Albumin 3.9 Globulin 3.8 H Albumin/Globulin Ratio 1.0 L - Additional Comments Rounded with Dr. Dixon, all orders per Dr. Dixon 1. We will discharge back to [facility] today 2. Xarelto 15 mg twice daily x 21 days then 20 mg daily DS: Diagnosis - Discharge Diagnosis (1) Pulmonary embolism, bilateral Status: Acute (2) Obesity (BMI 30-39.9) Status: Chronic (3) COPD (chronic obstructive pulmonary disease) Status: Acute (4) Left bundle branch block (LBBB) Status: Acute (5) Anemia Status: Acute (6) Thrombocytosis Status: Acute (7) Acute dyspnea Status: Acute (8) Left-sided chest pain Status: Acute Discharge Plan - Patient Discharge Instructions ACTIVITY: Continue current activity DIET: continue same diet - Follow up Plan Follow up with: Eliu Leonard APRN [Advanced Practice Nurse] - Disposition: er [facility] Home Medications: Home Medications Medication Instructions Recorded Confirmed Type omeprazole magnesium 20 mg 20 mg PO DAILY 06/08/18 05/08/19 History tablet,delayed release sennosides 8.6 mg-docusate sodium 1 tab PO BID 06/08/18 05/08/19 History 50 mg tablet isosorbide mononitrate 30 mg 30 mg PO DAILY 08/09/18 05/08/19 History tablet,extended release 24 hr Metoprolol Succinate 25 mg PO DAILY 09/17/18 05/08/19 History Ferrous Gluconate [Ferrous 324 mg PO DAILY 01/12/19 05/08/19 History Gluconate 324mg Tab] Furosemide [Furosemide 40MG tAB] 40 mg PO DAILY 01/12/19 05/08/19 History Potassium Chloride [Klor-Con M20] 20 meq PO DAILY 01/12/19 05/08/19 History polyethylene glycoL 3350 17 gm PO DAILY 03/05/19 05/08/19 History [Powderlax] Acetaminophen [Acetaminophen Extra 500 mg PO Q4HP PRN 05/08/19 05/08/19 History Strength] Hydrocodone/Acetaminophen 1 each PO BID 05/08/19 05/08/19 History [Hydrocodone-Acetamin 5-325 mg] Ipratropium/Albuterol Sulfate 3 ml IH Q6HP PRN 05/08/19 05/08/19 History [Iprat-Albut 0.5-3(2.5) mg/3 ml] Methylcellulose [Fiber Laxative] 500 mg PO DAILY 05/08/19 05/08/19 History ondansetron HCL [Ondansetron HCl] 4 mg PO Q8HP PRN 05/08/19 05/08/19 History Rivaroxaban [Xarelto 15mg tablet] 15 mg PO BID 21 Days #42 tab 05/09/19 Rx Rivaroxaban [Xarelto 20mg Tablet*] 20 mg PO DAILY 30 Days #30 tab 05/09/19 Rx Prescriptions/Medication Reconciliation: New Rivaroxaban [Xarelto 15mg tablet] 15 mg PO BID 21 Days #42 tab Rivaroxaban [Xarelto 20mg Tablet*] 20 mg PO DAILY 30 Days #30 tab Continued omeprazole magnesium 20 mg tablet,delayed release 20 mg PO DAILY sennosides 8.6 mg-docusate sodium 50 mg tablet 1 tab PO BID isosorbide mononitrate 30 mg tablet,extended release 24 hr 30 mg PO DAILY Ferrous Gluconate [Ferrous Gluconate 324mg Tab] 324 mg PO DAILY Potassium Chloride [Klor-Con M20] 20 meq PO DAILY polyethylene glycoL 3350 [Powderlax] 17 gm PO DAILY Acetaminophen [Acetaminophen Extra Strength] 500 mg PO Q4HP PRN PRN Reason: PAIN/FEVER ondansetron HCL [Ondansetron HCl] 4 mg PO Q8HP PRN PRN Reason: Nausea And Vomiting Metoprolol Succinate 25 mg PO DAILY Furosemide [Furosemide 40MG tAB] 40 mg PO DAILY Methylcellulose [Fiber Laxative] 500 mg PO DAILY Hydrocodone/Acetaminophen [Hydrocodone-Acetamin 5-325 mg] 1 each PO BID Ipratropium/Albuterol Sulfate [Iprat-Albut 0.5-3(2.5) mg/3 ml] 3 ml IH Q6HP PRN PRN Reason: SHORTNESS OF BREATH - Problem Reconciliation Problems Reviewed?: Yes
== END 2019-05-09 10:45 ==
LOC: ER 11:30 → 2ND 11:30
PROVIDERS: ADMIT Internal Medicine Adolescent Medicine; ATTEND Emergency Medicine
CPT/HCPCS: 36415; 71010; 71045; 71275; 80053; 82962; 83880; 84484; 85025; 85378; 93005; 93306; 93970; 96372; 99284; G0378; Q9967

== ENCOUNTER 2019-09-09 05:17 | Emergency (ER) | payer MEDICARE, MEDICAID, SELFPAY ==
[2019-09-09] VITALS (9 sets, daily range): BP systolic 140–184; BP diastolic 65–75; PULSE 51–57; RESP 16–17; TEMP 36.4; O2SAT 95–99; BMI 32.5
--- NOTE | 2019-09-09 04:40 | ECG_ITS ---
APPROVED REPORT Exam: Resting ECG HR:57 bpm ECG Measurements Heart Rate 57 AXES CA 164 P 64 QRSd 176 QRS 56 QT 500 T 147 QTc 486 <Conclusion> Sinus bradycardia with premature supraventricular complexes Left bundle branch block Abnormal ECG Electronically signed by : Keegan Celestin, 09/10/2019 22:06:46
--- NOTE | 2019-09-09 05:02 | XR_ITS ---
PROCEDURE: XR CHEST PORTABLE Patient Age:69Y CLINICAL HISTORY: cp. Left-sided chest pain radiates into left arm COMPARISON: XR CHEST PORTABLE from 01/12/2019 XR CHEST PORTABLE from 03/05/2019 CT ANGIO CHEST from 05/08/2019 XR CHEST PORTABLE from 05/08/2019 FINDINGS: Today's portable upright chest semi-erect is compared to previous portable chest film 03/05/2019 No significant new findings but there is a linear area of atelectasis or scarring just above the left hemidiaphragm noted today of but otherwise chest film appears similar. Pulmonary vascularity is upper normal particular at the left chest but no overt CHF. No cephalization. Difficult to exclude some minimal blunting at the left CP angle... If there should be persistent left chest pain two view chest would be encouraged. Right CP angle is sharp.. . The heart is normal in size. Calcified aortic knob. The yaneli and mediastinal structures appear similar. Unchanged.. Chest wall grossly unremarkable on this portable study IMPRESSION: No prominent findings No definite acute significant findings Right lung clear unremarkable Left chest: Minimal linear atelectasis left lung base; and question possible subtle blunting left CP angle. . If left chest symptoms persist a follow-up PA and lateral suggested. Pulmonary vascularity appears upper normal at left chest Dictated by: Colby Chacon MD 09/09/2019 09:21 Electronically signed by Colby Chacon MD in [place] 09/09/2019 09:21
--- NOTE | 2019-09-09 05:03 | PC.NURSE ---
sent ekg to dr krause per dr machuca request.
[2019-09-09 05:12] LABS: Basophils # 0.1 K/mm3 (0-0.2); Basophils % 0.6 % (0.1-2.0); Eosinophils # 0.2 K/mm3 (0.0-0.4); Eosinophils % 2.3 % (0.1-12.0); Hematocrit 42.7 % (42.0-52.0); Hemoglobin 13.1 g/dL (14.1-18.0); Lymphocytes # 1.5 K/mm3 (0.7-4.5); Mean Corpuscular HGB Conc 30.8 g/dL (31.8-35.4); Mean Corpuscular Hemoglobin 25.1 pg (27.0-31.2); Mean Corpuscular Volume 81.5 fl (80-94); Monocytes # 0.5 K/mm3 (0.1-1.0); Monocytes % 6.9 % (1.7-9.3); Neutrophils # 5.3 K/mm3 (1.8-7.8); Neutrophils % 70.2 % (37.0-80.0); Platelet Count 420 K/mm3 (142-424); Red Blood Count 5.24 M/mm3 (4.60-6.20); Red Cell Distribution Width 14.2 % (11.5-17.5); White Blood Count 7.6 K/mm3 (4.8-10.8)
[2019-09-09 05:17] LABS: Alanine Aminotransferase 27 U/L (12-78); Albumin Level 3.8 g/dl (3.5-5.0); Alkaline Phosphatase 73 U/L (38-126); Aspartate Amino Transferase 33 U/L (17-59); Bilirubin,Direct 0.1 mg/dl (0.0-0.4); Bilirubin,Indirect 0.5 mg/dL (0.0-0.9); Bilirubin,Total 0.6 mg/dl (0.2-1.3); Bilirubin,Unconjugated 0.4 mg/dL (0.0-1.1); Blood Urea Nitrogen 19 mg/dl (9-20); Calcium 9.4 mg/dl (8.4-10.2); Chloride 89 mmol/L (98-107); Creatinine Clearance Estimated 96 mL/min (50-200); Estimated Glomerular Filt Rate 83 ml/min (>60); GFR (African American) 101 ML/MIN (>60); Glucose 105 mg/dl (74-100); Potassium 4.2 mmoL/L (3.5-5.1); Sodium 136 mmol/L (136-145); Total Protein,Serum 7.8 g/dl (6.3-8.2)
[2019-09-09 05:24] LABS: Anion Gap 13.2 mEq/L (5-15); Carbon Dioxide 38 mmol/L (22.0-30.0)
[2019-09-09 05:29] LABS: Coronavirus 19 IgG Antibody Negative (Negative); Coronavirus 19 IgM Antibody Negative (Negative)
[2019-09-09 05:30] LABS: NT Pro Brain Natriuretic Pep. 218 pg/mL (0-125); Troponin I < 0.01 ng/ml (0.00-0.034)
--- NOTE | 2019-09-09 06:59 | PC.NURSE ---
report given to loretta yatesrn
--- NOTE | 2019-09-09 07:46 | HMH.EDCP ---
ED Disposition Clinical Impression: Stable angina Disposition: Home, Self-Care Condition on Discharge: Good Instructions: DI for Atypical Chest Pain Referrals: Vlad Dixon MD [Primary Care Provider] - - Critical Care Critical Care Time: No Attestation: On 09/09/19, the high probability of a clinically significant, sudden or life threatening deterioration of the following system(s) required my full and direct attention, intervention and personal management. The time I documented below is in addition to time spent performing reported procedures but includes the following listed in this critical care notation. Medical Decision Making - Medical Records Medical records reviewed: Yes: I reviewed the patient's medical records. - Andi Inquiry Pt receiving controlled substance: No Vital Signs: 09/09/19 04:54 09/09/19 05:28 09/09/19 06:12 Temperature 97.6 F Temperature Source Oral Pulse Rate [Right Brachial] 57 L 54 L 53 L Respiratory Rate 16 17 Blood Pressure [Right Arm] 184/71 H 146/67 H 142/65 H Blood Pressure Mean [Right Arm] 108 93 90 Blood Pressure Source [Right Arm] Automatic Cuff Automatic Cuff Automatic Cuff Blood Pressure Position [Right Arm] Sitting Sitting Sitting 02 Sat by Pulse Oximetry 96 98 99 Oxygen Delivery Method Room Air Room Air Room Air 09/09/19 06:29 09/09/19 06:53 09/09/19 07:11 Temperature Temperature Source Pulse Rate [Right Brachial] 53 L 56 L 57 L Respiratory Rate 16 16 Blood Pressure [Right Arm] 153/68 H 177/75 H 140/67 Blood Pressure Mean [Right Arm] 96 109 91 Blood Pressure Source [Right Arm] Automatic Cuff Automatic Cuff Automatic Cuff Blood Pressure Position [Right Arm] Sitting Sitting Sitting 02 Sat by Pulse Oximetry 99 98 99 Oxygen Delivery Method Room Air Room Air 09/09/19 07:29 Temperature Temperature Source Pulse Rate [Right Brachial] 51 L Respiratory Rate Blood Pressure [Right Arm] 147/68 H Blood Pressure Mean [Right Arm] 94 Blood Pressure Source [Right Arm] Automatic Cuff Blood Pressure Position [Right Arm] Sitting 02 Sat by Pulse Oximetry 99 Oxygen Delivery Method Nasal Cannula - Lab Data Lab results reviewed: Yes: I reviewed the patient's lab results. Lab Results 09/09/19 04:55: WBC 7.6, RBC 5.24, Hgb 13.1 L, Hct 42.7, MCV 81.5, MCH 25.1 L, MCHC 30.8 L, RDW 14.2, Plt Count 420, MPV 7.0 L, Neut % (Auto) 70.2, Lymph % (Auto) 20.0, [place] % (Auto) 6.9, Eos % (Auto) 2.3, Baso % (Auto) 0.6, Neut # (Auto) 5.3, Lymph # (Auto) 1.5, [place] # (Auto) 0.5, Eos # (Auto) 0.2, Baso # (Auto) 0.1 09/09/19 04:55: Sodium 136, Potassium 4.2, Chloride 89 L, Carbon Dioxide 38 H, Anion Gap 13.2, BUN 19, Creatinine 0.90, Estimated Creat Clear 96, Estimated GFR 83, Est GFR ( Amer) 101, Glucose 105 H, Calcium 9.4, Total Bilirubin 0.6, Direct Bilirubin 0.1, Conjugated Bilirubin 0.0, Indirect Bilirubin 0.5, Unconjugated Bilirubin 0.4, AST 33, ALT 27, Alkaline Phosphatase 73, Troponin I < 0.01, NT-Pro-B Natriuret Pep 218 H, Total Protein 7.8, Albumin 3.8 09/09/19 04:55: SARS-CoV-2 IgG Ab (Rapid) Negative, SARS-CoV-2 IgM Ab (Rapid) Negative Result diagrams: 09/09/19 04:55 09/09/19 04:55 Orders (Tests/Meds): ED MEDICATIONS Generic Name Dose Route Start Last Admin Trade Name Freq PRN Reason Stop Dose Admin Sodium Chloride 1,000 mls @ 999 mls/hr 09/09/19 05:15 09/09/19 05:09 Sod Chlor 0.9% 1000ml Bag IV 09/09/19 06:15 999 mls/hr .Q1H1M AMADO Administration Discontinued Medications Generic Name Dose Route Start Last Admin Trade Name Freq PRN Reason Stop Dose Admin Aspirin 324 mg 09/09/19 05:02 09/09/19 05:05 Aspirin 81mg Chewable Tablet PO 09/09/19 05:03 324 mg ONCE ONE Administration Nitroglycerin 1 gm 09/09/19 05:02 09/09/19 05:05 Nitroglycerin 1 Inch Oint Udp TD 09/09/19 05:03 1 gm ONCE ONE Administration ORDERS Category Date Time Status XR chest portable Stat Exams 09/09/19 05:02 Taken Troponin
--- NOTE | 2019-09-09 09:01 | PC.NURSE ---
Spoke with Teresa in the lab and she states that there are still 3 mins left on trop.
[2019-09-09 09:12] LABS: Troponin I < 0.01 ng/ml (0.00-0.034)
--- NOTE | 2019-09-09 09:23 | PC.NURSE ---
[facility] aware of pt being ready for discharge
--- NOTE | 2019-09-09 09:29 | PC.NURSE ---
Report called to JAY Freedman at [facility].
== END 2019-09-09 09:50 | disposition home or self-care (01) ==
PROVIDERS: Emergency Provider Family Medicine; PCP Emergency Medicine
DX: I20.8 Other forms of angina pectoris (principal); I10 Essential (primary) hypertension; E11.9 Type 2 diabetes mellitus without complications; K21.9 Gastro-esophageal reflux disease without esophagitis; E78.5 Hyperlipidemia, unspecified; F33.1 Major depressive disorder, recurrent, moderate; E66.9 Obesity, unspecified; Z68.32 Body mass index [BMI] 32.0-32.9, adult; Z87.891 Personal history of nicotine dependence; Z79.899 Other long term (current) drug therapy; Z88.0 Allergy status to penicillin; Z96.641 Presence of right artificial hip joint; Z96.642 Presence of left artificial hip joint; R06.02 Shortness of breath
CPT/HCPCS: 71045; 80048; 80076; 83880; 84484; 85025; 86328; 93005; 96365; 99284

== ENCOUNTER → 2020-02-23 20:59 | Outpatient (CLI) | payer MEDICARE, MEDICAID, SELFPAY | PROVIDERS: PCP Emergency Medicine; Visit Provider Nurse Practitioner Family | DX: U07.1 COVID-19 (principal) | CPT/HCPCS: U0003 ==

== ENCOUNTER → 2020-03-23 02:59 | Outpatient (CLI) | payer MEDICARE, MEDICAID, SELFPAY ==
[2020-03-23 03:54] LABS: Potassium 3.9 mmoL/L (3.5-5.1)
== END ==
PROVIDERS: PCP Emergency Medicine; Visit Provider Emergency Medicine
DX: Z51.81 Encounter for therapeutic drug level monitoring (principal)
CPT/HCPCS: 84132

== ENCOUNTER → 2020-04-23 13:36 | Outpatient (CLI) | payer MEDICARE, MEDICAID, SELFPAY ==
--- NOTE | 2020-04-23 13:38 | CA_ITS ---
APPROVED REPORT EXAM: Comprehensive 2D, Doppler, and color-flow Echocardiogram Manager Golf: Franny Kulkarni RVT Ht: 5 ft 11 in Wt: 248lbs BSA: 2.31 BP: 102/66 mmHg Indications: soa,cad,lbbb,cp,gerd,edema,smoker,obesity,w/c bound tds-best exam possible pt scanned in w/c 2D Dimensions LVOT 2.27 cm (M/F) 1.5-2.5 LA Volume 36.20 mL LA Volume Index 15.67 mL/m2 (M/F) 16-34 M-Mode Dimensions RVDd 2.21 cm (0.9-2.6) LA Diam 4.24 cm (1.9-4.0) LVDd 5.18 cm (3.5-5.7) Ao Diam 3.24 cm (2.0-3.7) LVDs 3.35 cm (3.5-5.7) IVSd 1.10 cm (0.6-1.1) PWd 0.47 cm (0.6-1.1) EF (Teich) 64.30% FS 35.30% EDV (Teich) 128.40 mL ESV (Teich) 45.80 mL LV Diastology MED E' 7.00 (< 7 cm/sec) Aortic Valve AI PHT 485.00 ms Pulmonary Valve PV Peak Velocity 118.00 (50-150 cm/s) Tricuspid Valve TR P. Velocity 232.00 cm/s RAP Estimate 10.00 mmHg RVSP 31.60 mmHg Left Ventricle Left atrium is mildly enlarged, left ventricle is normal size, mild concentric left ventricular hypertrophy, visually estimated ejection fraction 55% with no regional wall motion abnormality, diastolic parameters are inconclusive. Right Ventricle Right atrium and right ventricle are normal size and contractility. Aortic Valve Aortic valve is minimally thickened and fibrosed. There is no aortic stenosis, there is trace aortic insufficiency. Mitral Valve Mitral valve is minimally thickened, there is trace mitral regurgitation. Tricuspid Valve Tricuspid valve grossly normal, there is trace tricuspid regurgitation. Pulmonic Valve Pulmonic valve is poorly visualized. Great Vessels Aortic root is normal size. Pericardium No significant pericardial effusion noted. Conclusion 1. Technically difficult study because of the patient factors and poor acoustic windows. Visually estimated ejection fraction 55% with no regional wall motion abnormality, endocardial surfaces are poorly visualized, diastolic parameters are inconclusive. 2. Trace mitral and tricuspid regurgitation.. 3. No significant pericardial effusion noted. Electronically signed by : Manan Alvarez, 04/23/2020 21:53:07
== END ==
PROVIDERS: PCP Emergency Medicine; Visit Provider Nurse Practitioner Family
DX: R07.9 Chest pain, unspecified; R06.00 Dyspnea, unspecified; R94.31 Abnormal electrocardiogram [ECG] [EKG]; E66.9 Obesity, unspecified; R60.9 Edema, unspecified; I25.118 Atherosclerotic heart disease of native coronary artery with other forms of angina pectoris; I44.7 Left bundle-branch block, unspecified; I50.9 Heart failure, unspecified; F17.200 Nicotine dependence, unspecified, uncomplicated; Z82.49 Family history of ischemic heart disease and other diseases of the circulatory system; Z99.3 Dependence on wheelchair
CPT/HCPCS: 93306

== ENCOUNTER 2020-04-26 04:35 | Inpatient (IN) | payer MEDICARE, MEDICAID, SELFPAY ==
[2020-04-26] VITALS (16 sets, daily range): BP systolic 126–187; BP diastolic 51–76; PULSE 54–74; RESP 16–22; TEMP 36.2–36.8; O2SAT 90–96; BMI 33.0; BMI 45.1
--- NOTE | 2020-04-26 04:41 | ECG_ITS ---
APPROVED REPORT Exam: Resting ECG HR:68 bpm ECG Measurements Heart Rate [address] 170 P 61 QRSd 146 QRS 11 QT 480 T 114 QTc 510 Conclusion Normal sinus rhythm Nonspecific intraventricular block Abnormal ECG Electronically signed by : Bari Villatoro, 04/27/2020 07:12:42
[2020-04-26 04:48] LABS: ABG Base Excess 9.1 mmol/L (-2.4-2.3); ABG HCO3 34.3 mmhg (22.0-26.0); ABG Oxygen Saturation 90 % (90-100); ABG PH 7.37 mmol/L (7.35-7.45); ABG PO2 59.6 mmhg (80-100); ABG TCO2 36.2 mmhg (23-27)
[2020-04-26 04:50] LABS: Allen's Test Acceptable; Oxygen ROOM AIR %; Source Right Radial
[2020-04-26 04:51] LABS: ABG PCO2 60.3 mmhg (35.0-45.0)
--- NOTE | 2020-04-26 04:53 | XR_ITS ---
PROCEDURE: XR CHEST PORTABLE CLINICAL HISTORY: soa Shortness of air COMPARISON: CR XR CHEST PORTABLE from 03/05/[address] ANGIO CHEST from 05/08/2019 CR XR CHEST PORTABLE from 05/08/2019 CR XR CHEST PORTABLE from 09/09/2019 FINDINGS: Borderline cardiomegaly without failure. No lobar consolidation or collapse. The right CP angle is not included on the image. No acute bony abnormalities. IMPRESSION: No acute findings. Dictated by: Angel Sagastume MD 04/26/2020 05:34 Angel Sagastume MD in [place] 04/26/2020 05:34
[2020-04-26 05:03] LABS: Microscopic, Urine URINE MICROSCOPIC (MICROSCOPIC)
--- NOTE | 2020-04-26 05:06 | HMH.EDSOB ---
ED Disposition Clinical Impression: Acute exacerbation of chronic obstructive airways disease, LBBB (left bundle branch block), Obesity (BMI 30-39.9) Respiratory failure with hypercapnia Qualifiers: Chronicity: acute on chronic Qualified Code(s): J96.22 - Acute and chronic respiratory failure with hypercapnia Disposition: Admitted As Inpatient Condition on Discharge: Serious Referrals: Vlad Dixon MD [Primary Care Provider] - - Critical Care Critical Care Time: No Attestation: On 04/26/20, the high probability of a clinically significant, sudden or life threatening deterioration of the following system(s) required my full and direct attention, intervention and personal management. The time I documented below is in addition to time spent performing reported procedures but includes the following listed in this critical care notation. Medical Decision Making - Medical Records Medical records reviewed: Yes: I reviewed the patient's medical records. - Andi Inquiry Pt receiving controlled substance: No Vital Signs: 04/26/20 04:39 04/26/20 04:48 04/26/20 05:01 Temperature 98.3 F Temperature Source Oral Pulse Rate 66 57 L Pulse Rate [Right] 64 Respiratory Rate 22 Blood Pressure 167/70 H 156/60 H Blood Pressure [Right Arm] 187/67 H Blood Pressure Mean 94 92 Blood Pressure Mean [Right Arm] 107 Blood Pressure Source [Right Arm] Automatic Cuff Blood Pressure Position [Right Arm] Supine 02 Sat by Pulse Oximetry 92 L 92 L 96 Oxygen Delivery Method Room Air Room Air Nasal Cannula Oxygen Flow Rate (LPM) 2 04/26/20 05:31 Temperature Temperature Source Pulse Rate 55 L Pulse Rate [Right] Respiratory Rate Blood Pressure 155/57 H Blood Pressure [Right Arm] Blood Pressure Mean 89 Blood Pressure Mean [Right Arm] Blood Pressure Source [Right Arm] Blood Pressure Position [Right Arm] 02 Sat by Pulse Oximetry 94 L Oxygen Delivery Method Nasal Cannula Oxygen Flow Rate (LPM) 2 - Lab Data Lab results reviewed: Yes: I reviewed the patient's lab results. Lab Results 04/26/20 04:40: WBC 8.3, RBC 4.74, Hgb 12.1 L, Hct 39.4 L, MCV 83.2, MCH 25.5 L, MCHC 30.6 L, RDW 14.7, Plt Count 534 H, MPV 7.3 L, Neut % (Auto) 71.3, Lymph % (Auto) 15.9, [place] % (Auto) 9.1, Eos % (Auto) 2.5, Baso % (Auto) 1.2, Neut # (Auto) 5.9, Lymph # (Auto) 1.3, [place] # (Auto) 0.8, Eos # (Auto) 0.2, Baso # (Auto) 0.1, ESR 20 04/26/20 04:40: Sodium 131 L, Potassium 4.1, Chloride 87 L, Carbon Dioxide 33 H, Anion Gap 15.1 H, BUN 14, Creatinine 0.80, Estimated Creat Clear 99, Estimated GFR 95, Est GFR ( Amer) 115, Glucose 127 H, Calcium 9.2, Total Bilirubin 0.4, AST 21, ALT 12, Alkaline Phosphatase 53, C-Reactive Protein 70.2 H, NT-Pro-B Natriuret Pep 872 H, Total Protein 7.9, Albumin 4.0, Globulin 3.9 H, Albumin/Globulin Ratio 1.0 L, Procalcitonin 0.107 04/26/20 04:55: Urine Color Yellow, Urine Appearance Clear, Urine pH 7.0, Ur Specific [place] 1.020, Urine Protein Negative, Urine Glucose (UA) Negative, Urine Ketones Negative, Urine Blood Negative, Urine Nitrate Negative, Urine Bilirubin Negative, Urine Urobilinogen 2.0, Ur Leukocyte Esterase Negative, Urine RBC 3-5, Urine WBC 3-5, Urine Bacteria 1+, Hyaline Casts 5-10, Urine Mucus 1+ 04/26/20 : Specimen Source Right radial, O2 % Room air, ABG pH 7.37, ABG pCO2 60.3 H, ABG pO2 59.6 L, ABG HCO3 34.3 H, ABG Total CO2 36.2 H, ABG O2 Saturation 90, ABG Base Excess 9.1 H, Angel Test Acceptable Result diagrams: 04/26/20 04:40 04/26/20 04:40 Orders (Tests/Meds): ED MEDICATIONS Generic Name Dose Route Start Last Admin Trade Name Freq PRN Reason Stop Dose Admin Sodium Chloride 1,000 mls @ 999 mls/hr 04/26/20 05:00 04/26/20 05:27 Sod Chlor 0.9% 1000ml Bag IV 04/26/20 06:00 999 mls/hr .Q1H1M AMADO Administration Discontinued Medications Generic Name Dose Route Start Last Admin Trade Name Freq PRN Reason Stop Dose Admin Methylprednisolone Sodium Succinate 1
[2020-04-26 05:18] LABS: Basophils # 0.1 K/mm3 (0-0.2); Basophils % 1.2 % (0.1-2.0); Eosinophils # 0.2 K/mm3 (0.0-0.4); Eosinophils % 2.5 % (0.1-12.0); Hematocrit 39.4 % (42.0-52.0); Hemoglobin 12.1 g/dL (14.1-18.0); Lymphocytes # 1.3 K/mm3 (0.7-4.5); Lymphocytes % 15.9 % (10-50); Mean Corpuscular HGB Conc 30.6 g/dL (31.8-35.4); Mean Corpuscular Hemoglobin 25.5 pg (27.0-31.2); Mean Corpuscular Volume 83.2 fl (80-94); Mean Platelet Volume 7.3 fl (7.4-10.4); Monocytes # 0.8 K/mm3 (0.1-1.0); Monocytes % 9.1 % (1.7-9.3); Neutrophils # 5.9 K/mm3 (1.8-7.8); Neutrophils % 71.3 % (37.0-80.0); Platelet Count 534 K/mm3 (142-424); Red Blood Count 4.74 M/mm3 (4.60-6.20); Red Cell Distribution Width 14.7 % (11.5-17.5); White Blood Count 8.3 K/mm3 (4.8-10.8)
[2020-04-26 05:23] LABS: Appearance,Urine CLEAR (Clear); Bilirubin,Urine Negative (Negative); Blood, Urine Negative (Negative); Color,Urine YELLOW (Yellow); Glucose,Urine (UA) Negative (Negative); Ketones,Urine Negative (Negative); Leukocyte Esterase,Urine Negative (Negative); Nitrate,Urine Negative (Negative); Protein,Urine Negative (Negative)
[2020-04-26 05:27] LABS: Alanine Aminotransferase 12 U/L (12-78); Alkaline Phosphatase 53 U/L (38-126); Aspartate Amino Transferase 21 U/L (17-59); Bilirubin,Total 0.4 mg/dl (0.2-1.3); Blood Urea Nitrogen 14 mg/dl (9-20); Calcium 9.2 mg/dl (8.4-10.2); Chloride 87 mmol/L (98-107); Creatinine Clearance Estimated 99 mL/min (50-200); Estimated Glomerular Filt Rate 95 ml/min (>60); GFR (African American) 115 ML/MIN (>60); Globulin 3.9 g/dL (1.3-3.2); Glucose 127 mg/dl (74-100); Potassium 4.1 mmoL/L (3.5-5.1); Sodium 131 mmol/L (136-145); Total Protein,Serum 7.9 g/dl (6.3-8.2)
--- NOTE | 2020-04-26 05:30 | PC.NURSE ---
ABG results given to Dr Dixon
[2020-04-26 05:32] LABS: C-Reactive Protein 70.2 mg/L (0-4)
[2020-04-26 05:33] LABS: Anion Gap 15.1 mEq/L (5-15); Carbon Dioxide 33 mmol/L (22.0-30.0)
[2020-04-26 05:38] LABS: NT Pro Brain Natriuretic Pep. 872 pg/mL (0-125)
[2020-04-26 05:44] LABS: Bacteria,Urine 1+ /lpf; Mucus,Urine 1+ /lpf
[2020-04-26 05:46] LABS: Procalcitonin 0.107 ng/mL (0.0-2.0)
[2020-04-26 06:09] LABS: Erythrocyte Sedimentation Rate 20 mm/hr (0-20)
--- NOTE | 2020-04-26 07:44 | P.CONPHA_ITS ---
[facility] Pharmacy VTE Monitoring - Patient Demographics Admission date: 04/26/20 Report Date: 04/26/20 Time: 07:44 Allergies/Adverse Reactions: Patient Allergies Penicillins [PENICILLINS] Allergy (Intermediate, Verified 04/16/20 10:16) I-HIVES Height: 1.78 m Weight: 104.326 kg Patient Problems: Current Active Problems Left bundle branch block (LBBB) (Acute) Acute exacerbation of chronic obstructive airways disease (Acute) Respiratory failure with hypercapnia (Acute) Obesity (BMI 30-39.9) (Chronic) - VTE Risk Labs: VTE Related Lab Results Hgb 12.1 g/dL (14.1-18.0) L 04/26/20 04:40 Hct 39.4 % (42.0-52.0) L 04/26/20 04:40 Plt Count 534 K/mm3 (142-424) H 04/26/20 04:40 BUN 14 mg/dl (9-20) 04/26/20 04:40 Creatinine 0.80 mg/dl (0.66-1.25) 04/26/20 04:40 Estimated Creat Clear 99 mL/min (50-200) 04/26/20 04:40 Clinical Trial Participant: No - Prophylaxis VTE Prophylaxis Ordered?: Yes Types of VTE Prophylaxis: TEDS Knee High, Pharmacological (XARELTO)
[2020-04-26 07:51] LABS: Lactic Acid < 0.5 mmol/L (0.7-2.1)
--- NOTE | 2020-04-26 07:59 | PC.NURSE ---
REPORT CALLED TO FLOOR
--- NOTE | 2020-04-26 09:18 | SW/DCPLANNER ---
Addendum entered by Milagros Vu 04/29/20 09:45: I have spoke with Connie from [facility] this morning: patient will discharge back today and COVID swab is NOT needed per Connie. Original Note: This patient currently resides at [facility]. I have spoke with Connie this morning and she stated that patient is ICF level of care. Patient information has been faxed to Connie. I will continue to follow up with Connie until patient is medically stable for discharge.
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
--- NOTE | 2020-04-26 10:38 | HMH.PHAINT ---
verified home medication list using mar from [facility]
--- NOTE | 2020-04-26 10:42 | ECG_ITS ---
APPROVED REPORT Exam: Resting ECG HR:63 bpm ECG Measurements Heart Rate 63 AXES [place] 186 P 65 QRSd 140 QRS -6 QT 482 T 111 QTc 493 Conclusion Sinus rhythm with premature atrial complexes Nonspecific intraventricular block LAD Abnormal ECG Electronically signed by : Bari Villatoro, 04/27/2020 07:12:29
[2020-04-26 10:59] LABS: Troponin I < 0.01 ng/ml (0.00-0.034)
--- NOTE | 2020-04-26 14:48 | DIET.NUTRFU ---
Per [facility], pt is on low sodium and 2L fluid restriction at their facility, but is not on a dysphagia diet. Pt does report chewing/swallowing difficulties and states he does follow a soft diet..soft diet with modifications for ease of eating given.
--- NOTE | 2020-04-26 18:22 | PC.NURSE ---
shift note: new admit this morning. Bilateral lungs with wheezing. Bradycardia @ times. Has a 1st degree AV block, BBB, ST depression, and a prolonged QT wave. Cardiology is aware. On 3L NC. Wood catheter. No BM. HTN. Is A&O but refuses to open eyes. Denies pain.
[2020-04-27] VITALS (11 sets, daily range): BP systolic 126–155; BP diastolic 53–69; PULSE 60–78; RESP 18–23; TEMP 36.7–37.1; O2SAT 90–94; BMI 45.5
--- NOTE | 2020-04-27 04:01 | PC.NURSE ---
No acute changes. Pt has rested well this shift. No complaints stated. Pt ate a grilled cheese sandwich for dinner and a soda. Lungs are diminished t/o. Pt remains on 3L O2 NC. F/C draining to bedside with yellow urine. Call light within place. No other concerns at this time. Will continue to monitor.
[2020-04-27 05:52] LABS: Basophils % 0.1 % (0.1-2.0); Hematocrit 35.6 % (42.0-52.0); Hemoglobin 10.7 g/dL (14.1-18.0); Lymphocytes # 1.1 K/mm3 (0.7-4.5); Lymphocytes % 11.2 % (10-50); Mean Corpuscular HGB Conc 30.2 g/dL (31.8-35.4); Mean Corpuscular Hemoglobin 25.3 pg (27.0-31.2); Mean Corpuscular Volume 83.8 fl (80-94); Mean Platelet Volume 7.4 fl (7.4-10.4); Monocytes # 0.8 K/mm3 (0.1-1.0); Monocytes % 8.6 % (1.7-9.3); Neutrophils # 7.8 K/mm3 (1.8-7.8); Neutrophils % 80.1 % (37.0-80.0); Platelet Count 484 K/mm3 (142-424); Red Blood Count 4.24 M/mm3 (4.60-6.20); Red Cell Distribution Width 14.4 % (11.5-17.5); White Blood Count 9.7 K/mm3 (4.8-10.8)
[2020-04-27 07:15] LABS: Anion Gap 8.7 mEq/L (5-15); Blood Urea Nitrogen 19 mg/dl (9-20); Calcium 8.5 mg/dl (8.4-10.2); Carbon Dioxide 39 mmol/L (22.0-30.0); Chloride 88 mmol/L (98-107); Creatinine Clearance Estimated 56 mL/min (50-200); Estimated Glomerular Filt Rate 95 ml/min (>60); GFR (African American) 115 ML/MIN (>60); Glucose 100 mg/dl (74-100); Magnesium 1.7 mg/dl (1.6-2.3); Potassium 4.7 mmoL/L (3.5-5.1); Sodium 131 mmol/L (136-145)
--- NOTE | 2020-04-27 08:56 | HMH.ACPN2 ---
Internal Medicine - PN: Subj *Date: 04/28/20 *Time: 07:24 Interval history: more alert - no chest pain- dec po intake Exam Vital signs and Labs for Last 24 Hours: Temp Pulse Resp BP Pulse Ox 98.3 F 72 22 134/61 92 L 04/27/20 08:00 04/27/20 08:00 04/27/20 08:00 04/27/20 08:00 04/27/20 08:00 Laboratory Results - last 24 hr 04/26/20 04:40: Troponin I < 0.01 04/27/20 05:05: WBC 9.7, RBC 4.24 L, Hgb 10.7 L, Hct 35.6 L, MCV 83.8, MCH 25.3 L, MCHC 30.2 L, RDW 14.4, Plt Count 484 H, MPV 7.4, Neut % (Auto) 80.1 H, Lymph % (Auto) 11.2, [place] % (Auto) 8.6, Eos % (Auto) 0.0 L, Baso % (Auto) 0.1, Neut # (Auto) 7.8, Lymph # (Auto) 1.1, [place] # (Auto) 0.8, Eos # (Auto) 0.0, Baso # (Auto) 0.0 04/27/20 05:05: Sodium 131 L, Potassium 4.7, Chloride 88 L, Carbon Dioxide 39 H, Anion Gap 8.7, BUN 19 D, Creatinine 0.80, Estimated Creat Clear 56, Estimated GFR 95, Est GFR ( Amer) 115, Glucose 100, Calcium 8.5, Magnesium 1.7 I & O for Last 24 hours: Intake & Output 04/24/20 04/25/20 04/26/20 04/27/20 11:59 11:59 11:59 11:59 Intake Total 2446 / 2446 Output Total 1050 / 1050 Balance 1396 / 1396 Weight 271 lb 5 oz 273 lb 2 oz - Constitutional no acute distress, obese - *Routine HEENT Exam Head: Present: normocephalic Eye: Present: EOMI, PERRL ENT: Present: mucous membranes dry - *Routine Neck Exam Present: supple. Absent: JVD - *Routine Respiratory Exam Present: decreased breath sounds - *Routine Cardiovascular Exam Present: RRR - *Routine Abdominal Exam Present: soft - *Routine Extremities Exam Absent: calf tenderness - *Routine Skin Exam Present: intact - *Routine Neurological Exam Present: alert, CN II-XII intact - Routine Psychiatric Exam Present: normal affect Assessment and Plan (1) Acute exacerbation of chronic obstructive airways disease Status: Acute Category: Medical Code(s): J44.1 - Chronic obstructive pulmonary disease with (acute) exacerbation (2) Left bundle branch block (LBBB) Status: Acute Category: Medical Code(s): I44.7 - Left bundle-branch block, unspecified (3) Respiratory failure with hypercapnia Status: Acute Qualifiers: Chronicity: acute on chronic Qualified Code(s): J96.22 - Acute and chronic respiratory failure with hypercapnia Category: Medical Code(s): J96.92 - Respiratory failure, unspecified with hypercapnia (4) Obesity (BMI 30-39.9) Status: Chronic Category: Medical Code(s): E66.9 - Obesity, unspecified
--- NOTE | 2020-04-27 15:37 | PC.NURSE ---
No acute changes this shift. Pt O2 weaned to 1 L per nasal cannula, w/ no s/s of resp distress. Lungs diminished throughout. Cough noted, pt states it is non-productive. IS at bedside, educated pt on proper use w/ return demonstration. Pt will need frequent encouragement. IS @ best = 750. HR regular. +2 edema to BLE, legs noted to be red and scaly. Abdomen soft, non-tender w/ active BS in all quads. No BM this shift. Wood cath to drain @ bedside w/ missy colored urine noted. Wood care performed per staff. Bed bath and linens changed. Oral care performed after meals. Pt is being turned Q2H. No complaints voiced. Is currently sitting up in bed watching TV. Call priscilla w/in reach.
[2020-04-28] VITALS (15 sets, daily range): BP systolic 102–153; BP diastolic 62–75; PULSE 50–82; RESP 13–36; TEMP 36.7–37.1; O2SAT 89–98; BMI 45.6
--- NOTE | 2020-04-28 04:51 | PC.NURSE ---
shift summary patient has rested on and off throughout shift. o2 sats maintain greater than 88% on 1l nc, breath sounds diminished throughout. property assessment monitor has shown sr with rare pacs. castillo to gravity draining cloudy yellow urine. c/o knee pain, treated successfully with tylenol. no bm noted this shift. pain denies any nausea or vomiting.
--- NOTE | 2020-04-28 08:00 | XR_ITS ---
PROCEDURE: XR CHEST PORTABLE CLINICAL HISTORY: sob Shortness of air COMPARISON: CT CT ANGIO CHEST from 05/08/2019 CR XR CHEST PORTABLE from 05/08/2019 CR XR CHEST PORTABLE from 09/09/2019 CR XR CHEST PORTABLE from 04/26/2020 FINDINGS: Low lung volumes with mild cardiomegaly without failure. Increased markings in the lung bases which may be due to vascular crowding from atelectasis or possible infiltrate No acute bony abnormalities. IMPRESSION: Low lung volumes with nonspecific increased markings in the lung bases which may be due to atelectasis or infiltrate Dictated by: Angel Sagastume MD 04/28/2020 08:33 Angel Sagastume MD in [place] 04/28/2020 08:33
[2020-04-28 08:39] LABS: Basophils % 0.3 % (0.1-2.0); Eosinophils % 0.3 % (0.1-12.0); Hematocrit 35.1 % (42.0-52.0); Hemoglobin 10.7 g/dL (14.1-18.0); Lymphocytes # 1.8 K/mm3 (0.7-4.5); Lymphocytes % 19.1 % (10-50); Mean Corpuscular HGB Conc 30.6 g/dL (31.8-35.4); Mean Corpuscular Hemoglobin 25.5 pg (27.0-31.2); Mean Corpuscular Volume 83.5 fl (80-94); Mean Platelet Volume 7.7 fl (7.4-10.4); Monocytes # 0.6 K/mm3 (0.1-1.0); Monocytes % 6.4 % (1.7-9.3); Neutrophils # 6.8 K/mm3 (1.8-7.8); Neutrophils % 73.9 % (37.0-80.0); Platelet Count 418 K/mm3 (142-424); Red Cell Distribution Width 14.1 % (11.5-17.5); White Blood Count 9.2 K/mm3 (4.8-10.8)
[2020-04-28 08:50] LABS: Blood Urea Nitrogen 27 mg/dl (9-20); Calcium 8.7 mg/dl (8.4-10.2); Chloride 88 mmol/L (98-107); Creatinine Clearance Estimated 56 mL/min (50-200); Estimated Glomerular Filt Rate 83 ml/min (>60); GFR (African American) 100 ML/MIN (>60); Glucose 150 mg/dl (74-100); Potassium 3.7 mmoL/L (3.5-5.1); Sodium 131 mmol/L (136-145)
[2020-04-28 08:57] LABS: Anion Gap 11.7 mEq/L (5-15); Carbon Dioxide 35 mmol/L (22.0-30.0)
--- NOTE | 2020-04-28 08:57 | PC.NURSE ---
Spoke w/ L Veronica about aerobic blood culture prelim result, no med changes @ this time.
--- NOTE | 2020-04-28 09:32 | HMH.ACPN2 ---
Internal Medicine - PN: Subj *Date: 04/29/20 *Time: 05:29 Interval history: doing better - has good diuresis Exam Vital signs and Labs for Last 24 Hours: Temp Pulse Resp BP Pulse Ox 98.8 F 70 36 H 127/65 98 04/28/20 07:49 04/28/20 07:49 04/28/20 07:49 04/28/20 07:49 04/28/20 07:49 Laboratory Results - last 24 hr 04/28/20 08:18: WBC 9.2, RBC 4.20 L, Hgb 10.7 L, Hct 35.1 L, MCV 83.5, MCH 25.5 L, MCHC 30.6 L, RDW 14.1, Plt Count 418, MPV 7.7, Neut % (Auto) 73.9, Lymph % (Auto) 19.1, [place] % (Auto) 6.4, Eos % (Auto) 0.3, Baso % (Auto) 0.3, Neut # (Auto) 6.8, Lymph # (Auto) 1.8, [place] # (Auto) 0.6, Eos # (Auto) 0.0, Baso # (Auto) 0.0 04/28/20 08:18: Sodium 131 L, Potassium 3.7 D, Chloride 88 L, Carbon Dioxide 35 H, Anion Gap 11.7, BUN 27 H D, Creatinine 0.90, Estimated Creat Clear 56, Estimated GFR 83, Est GFR ( Amer) 100, Glucose 150 H, Calcium 8.7 I & O for Last 24 hours: Intake & Output 04/25/20 04/26/20 04/27/20 04/28/20 11:59 11:59 11:59 11:59 Intake Total 2446 / 2446 1200 / 1200 Output Total 1050 / 1050 2525 / 2525 Balance 1396 / 1396 -1325 / -1325 Weight 271 lb 5 oz 273 lb 2 oz 274 lb 2 oz Microbiology Reports for the Last 24 Hours: Microbiology 04/26/20 04:40 Blood Blood Culture - Preliminary NO GROWTH AFTER 48 HOURS 04/26/20 04:40 Blood Blood Culture - Preliminary - Constitutional no acute distress, obese - *Routine HEENT Exam Head: Present: normocephalic Eye: Present: EOMI, PERRL ENT: Present: mucous membranes dry - *Routine Neck Exam Absent: JVD - *Routine Respiratory Exam Present: decreased breath sounds - *Routine Cardiovascular Exam Present: RRR, murmur, S4 - *Routine Abdominal Exam Present: soft - *Routine Extremities Exam Absent: calf tenderness - *Routine Skin Exam Present: intact - *Routine Neurological Exam Present: alert, CN II-XII intact - Routine Psychiatric Exam Present: cooperative Assessment and Plan (1) Acute exacerbation of chronic obstructive airways disease Status: Acute Category: Medical Code(s): J44.1 - Chronic obstructive pulmonary disease with (acute) exacerbation (2) Left bundle branch block (LBBB) Status: Acute Category: Medical Code(s): I44.7 - Left bundle-branch block, unspecified (3) Respiratory failure with hypercapnia Status: Acute Qualifiers: Chronicity: acute on chronic Qualified Code(s): J96.22 - Acute and chronic respiratory failure with hypercapnia Category: Medical Code(s): J96.92 - Respiratory failure, unspecified with hypercapnia (4) Obesity (BMI 30-39.9) Status: Chronic Category: Medical Code(s): E66.9 - Obesity, unspecified (5) Hyponatremia Status: Acute Category: Medical Code(s): E87.1 - Hypo-osmolality and hyponatremia (6) Anemia Status: Acute Qualifiers: Anemia type: unspecified type Qualified Code(s): D64.9 - Anemia, unspecified Category: Medical Code(s): D64.9 - Anemia, unspecified
--- NOTE | 2020-04-28 10:19 | PC.NURSE ---
Room air sat at rest = 90%
--- NOTE | 2020-04-28 17:41 | PC.NURSE ---
Pt currently sitting up in chair eating supper. Was placed back on 1 L nasal cannula d/t him desatting to high 70's while napping today. Wheezes noted bilat upon auscultation. IS @ bedside, encouraged frequently throughout shift. IS @ best = 750. SR on tely. BLE continue to be edematous, red, shiny. Abdomen soft, non-tender w/ active BS in all quads. No BM this shift. Wood cath DC'd this afternoon, pt has yet to void @ this time. Pt was gotten up to shower chair and received shower w/ total dependence of staff. When transferring to chair pt was a X3/max assist, pt non-ambulatory and can only stand for brief period of time and pivot to chair. Pt states he typically does not have this much trouble transferring when he is at the [facility]. Pt has sat up in recliner for remainder of day after chair, he is waiting to be done w/ supper before returning to bed. Oral care performed. Call wells is w/in reach. No needs voiced.
[2020-04-29] VITALS (10 sets, daily range): BP systolic 141; BP diastolic 66; PULSE 59–77; RESP 19; TEMP 36.8; O2SAT 92–97; BMI 45.0
--- NOTE | 2020-04-29 04:34 | PC.NURSE ---
amanda desats to 80% while sleeping on 1 l nc,o2 increased to 2l nc sats increased to 85%, o2 increased to 3 l nc and sats maintain 88% or greater
[2020-04-29 06:49] LABS: Basophils % 0.3 % (0.1-2.0); Eosinophils # 0.1 K/mm3 (0.0-0.4); Eosinophils % 0.5 % (0.1-12.0); Hematocrit 36.2 % (42.0-52.0); Lymphocytes # 1.9 K/mm3 (0.7-4.5); Lymphocytes % 19.8 % (10-50); Mean Corpuscular HGB Conc 30.3 g/dL (31.8-35.4); Mean Corpuscular Hemoglobin 25.5 pg (27.0-31.2); Mean Platelet Volume 6.9 fl (7.4-10.4); Monocytes # 0.9 K/mm3 (0.1-1.0); Monocytes % 9.1 % (1.7-9.3); Neutrophils # 6.6 K/mm3 (1.8-7.8); Neutrophils % 70.3 % (37.0-80.0); Platelet Count 444 K/mm3 (142-424); Red Blood Count 4.31 M/mm3 (4.60-6.20); White Blood Count 9.4 K/mm3 (4.8-10.8)
[2020-04-29 07:11] LABS: Blood Urea Nitrogen 29 mg/dl (9-20); Chloride 88 mmol/L (98-107); Creatinine Clearance Estimated 56 mL/min (50-200); Estimated Glomerular Filt Rate 95 ml/min (>60); GFR (African American) 115 ML/MIN (>60); Glucose 98 mg/dl (74-100); Potassium 4.1 mmoL/L (3.5-5.1); Sodium 134 mmol/L (136-145)
[2020-04-29 07:17] LABS: Anion Gap 11.1 mEq/L (5-15); Carbon Dioxide 39 mmol/L (22.0-30.0)
[2020-04-29 07:39] LABS: Thyroid Stimulating Hormone 0.78 uIU/mL (0.465-4.68)
--- NOTE | 2020-04-29 08:29 | P.PN_ITS ---
Internal Medicine - PN: Subj *Date: 04/29/20 *Time: 08:29 Exam Vital signs and Labs for Last 24 Hours: Temp Pulse Resp BP Pulse Ox 98.2 F 69 19 141/66 H 92 L 04/29/20 03:12 04/29/20 08:23 04/29/20 03:12 04/29/20 03:12 04/29/20 07:21 Laboratory Results - last 24 hr 04/28/20 08:18: WBC 9.2, RBC 4.20 L, Hgb 10.7 L, Hct 35.1 L, MCV 83.5, MCH 25.5 L, MCHC 30.6 L, RDW 14.1, Plt Count 418, MPV 7.7, Neut % (Auto) 73.9, Lymph % (Auto) 19.1, [place] % (Auto) 6.4, Eos % (Auto) 0.3, Baso % (Auto) 0.3, Neut # (Auto) 6.8, Lymph # (Auto) 1.8, [place] # (Auto) 0.6, Eos # (Auto) 0.0, Baso # (Auto) 0.0 04/28/20 08:18: Sodium 131 L, Potassium 3.7 D, Chloride 88 L, Carbon Dioxide 35 H, Anion Gap 11.7, BUN 27 H D, Creatinine 0.90, Estimated Creat Clear 56, Estimated GFR 83, Est GFR ( Amer) 100, Glucose 150 H, Calcium 8.7 04/29/20 05:53: WBC 9.4, RBC 4.31 L, Hgb 11.0 L, Hct 36.2 L, MCV 84.0, MCH 25.5 L, MCHC 30.3 L, RDW 14.0, Plt Count 444 H, MPV 6.9 L, Neut % (Auto) 70.3, Lymph % (Auto) 19.8, [place] % (Auto) 9.1, Eos % (Auto) 0.5, Baso % (Auto) 0.3, Neut # (Auto) 6.6, Lymph # (Auto) 1.9, [place] # (Auto) 0.9, Eos # (Auto) 0.1, Baso # (Auto) 0.0 04/29/20 05:53: Sodium 134 L, Potassium 4.1, Chloride 88 L, Carbon Dioxide 39 H, Anion Gap 11.1, BUN 29 H, Creatinine 0.80, Estimated Creat Clear 56, Estimated GFR 95, Est GFR ( Amer) 115, Glucose 98 D, Calcium 9.0, TSH 0.78 I & O for Last 24 hours: Intake & Output 04/26/20 04/27/20 04/28/20 04/29/20 23:59 23:59 23:59 23:59 Intake Total 1946 / 1946 1220 / 1220 960 / 960 Output Total 350 / 1050 2700 / 2700 3625 / 3625 775 / 775 Balance 1596 / 896 -1480 / -1480 -2665 / -2665 -775 / -775 Weight 123 kg 123.887 kg 124.341 kg 122.555 kg Microbiology Reports for the Last 24 Hours: Microbiology 04/26/20 04:40 Blood Blood Culture - Preliminary NO GROWTH AFTER 48 HOURS Assessment and Plan (1) Acute exacerbation of chronic obstructive airways disease Status: Acute Category: Medical Code(s): J44.1 - Chronic obstructive pulmonary disease with (acute) exacerbation (2) Left bundle branch block (LBBB) Status: Acute Category: Medical Code(s): I44.7 - Left bundle-branch block, unspecified (3) Respiratory failure with hypercapnia Status: Acute Qualifiers: Chronicity: acute on chronic Qualified Code(s): J96.22 - Acute and chronic respiratory failure with hypercapnia Category: Medical Code(s): J96.92 - Respiratory failure, unspecified with hypercapnia (4) Obesity (BMI 30-39.9) Status: Chronic Category: Medical Code(s): E66.9 - Obesity, unspecified (5) Hyponatremia Status: Acute Category: Medical Code(s): E87.1 - Hypo-osmolality and hyponatremia (6) Anemia Status: Acute Qualifiers: Anemia type: unspecified type Qualified Code(s): D64.9 - Anemia, unspecified Category: Medical Code(s): D64.9 - Anemia, unspecified The patient's infection will respond to the chosen ABx?: Yes Is the patient receiving the right drug, dose, and route?: Yes Could a more targeted ABx be ordered?: No
--- NOTE | 2020-04-29 09:35 | HMH.DCSUM ---
General - General Admission date:: 04/26/20 Discharge date: 04/29/20 HPI HPI: 70 yr old male presented to ed from [place] with c/o soa. Per staff he was having a increase work of breathing with soa. Pt has hx of copd,chf. Pt was admitted for further work up and treatment. Pt is not answering question or arousing to being spoken to. Hospital Course Hospital Course: Laboratory Tests 04/26/20 04/26/20 04/26/20 04:40 04:40 04:40 WBC 8.3 RBC 4.74 Hgb 12.1 L Hct 39.4 L MCV 83.2 MCH 25.5 L MCHC 30.6 L RDW 14.7 Plt Count 534 H MPV 7.3 L Neut % (Auto) 71.3 Lymph % (Auto) 15.9 [place] % (Auto) 9.1 Eos % (Auto) 2.5 Baso % (Auto) 1.2 Neut # (Auto) 5.9 Lymph # (Auto) 1.3 [place] # (Auto) 0.8 Eos # (Auto) 0.2 Baso # (Auto) 0.1 ESR 20 Specimen Source O2 % ABG pH ABG pCO2 ABG pO2 ABG HCO3 ABG Total CO2 ABG O2 Saturation ABG Base Excess Angel Test Sodium 131 L Potassium 4.1 Chloride 87 L Carbon Dioxide 33 H Anion Gap 15.1 H BUN 14 Creatinine 0.80 Estimated Creat Clear 99 Estimated GFR 95 Est GFR ( Amer) 115 Glucose 127 H Lactate Calcium 9.2 Magnesium Total Bilirubin 0.4 AST 21 ALT 12 Alkaline Phosphatase 53 Troponin I < 0.01 C-Reactive Protein 70.2 H NT-Pro-B Natriuret Pep 872 H Total Protein 7.9 Albumin 4.0 Globulin 3.9 H Albumin/Globulin Ratio 1.0 L Procalcitonin 0.107 TSH Urine Color Urine Appearance Urine pH Ur Specific [place] Urine Protein Urine Glucose (UA) Urine Ketones Urine Blood Urine Nitrate Urine Bilirubin Urine Urobilinogen Ur Leukocyte Esterase Urine RBC Urine WBC Urine Bacteria Hyaline Casts Urine Mucus 04/26/20 04/26/20 04/26/20 04:55 07:20 Unknown WBC RBC Hgb Hct MCV MCH MCHC RDW Plt Count MPV Neut % (Auto) Lymph % (Auto) [place] % (Auto) Eos % (Auto) Baso % (Auto) Neut # (Auto) Lymph # (Auto) [place] # (Auto) Eos # (Auto) Baso # (Auto) ESR Specimen Source Right radial O2 % Room air ABG pH 7.37 ABG pCO2 60.3 H ABG pO2 59.6 L ABG HCO3 34.3 H ABG Total CO2 36.2 H ABG O2 Saturation 90 ABG Base Excess 9.1 H Angel Test Acceptable Sodium Potassium Chloride Carbon Dioxide Anion Gap BUN Creatinine Estimated Creat Clear Estimated GFR Est GFR ( Amer) Glucose Lactate < 0.5 L Calcium Magnesium Total Bilirubin AST ALT Alkaline Phosphatase Troponin I C-Reactive Protein NT-Pro-B Natriuret Pep Total Protein Albumin Globulin Albumin/Globulin Ratio Procalcitonin TSH Urine Color Yellow Urine Appearance Clear Urine pH 7.0 Ur Specific [place] 1.020 Urine Protein Negative Urine Glucose (UA) Negative Urine Ketones Negative Urine Blood Negative Urine Nitrate Negative Urine Bilirubin Negative Urine Urobilinogen 2.0 Ur Leukocyte Esterase Negative Urine RBC 3-5 Urine WBC 3-5 Urine Bacteria 1+ Hyaline Casts 5-10 Urine Mucus 1+ 04/27/20 04/27/20 04/28/20 05:05 05:05 08:18 WBC 9.7 9.2 RBC 4.24 L 4.20 L Hgb 10.7 L 10.7 L Hct 35.6 L 35.1 L MCV 83.8 83.5 MCH 25.3 L 25.5 L MCHC 30.2 L 30.6 L RDW 14.4 14.1 Plt Count 484 H 418 MPV 7.4 7.7 Neut % (Auto) 80.1 H 73.9 Lymph % (Auto) 11.2 19.1 [place] % (Auto) 8.6 6.4 Eos % (Auto) 0.0 L 0.3 Baso % (Auto) 0.1 0.3 Neut # (Auto) 7.8 6.8 Lymph # (Auto) 1.1 1.8 [place] # (Auto) 0.8 0.6 Eos # (Auto) 0.0 0.0 Baso # (Auto) 0.0 0.0 ESR Specimen Source O2 % ABG pH ABG pCO2 ABG pO2 ABG HCO3 ABG Total CO2 ABG O2 Saturation ABG Base Excess Angel Test Sodium 131
--- NOTE | 2020-04-29 09:52 | P.PN_ITS ---
Internal Medicine - PN: Subj *Date: 04/29/20 *Time: 09:52 Interval history: No acute respiratory events overnight. Exam - Constitutional Constitutional:: Present: no acute distress, comfortable - HENMT Exam HENMT: Present: normocephalic, atraumatic - Eye Exam Eyes:: Present: eyelids normal - Neck Exam Neck:: Present: thyroid normal - Respiratory Exam Respiratory:: Present: able to speak in complete sentences, lungs clear, normal breath sounds, no respiratory distress - Cardiovascular Exam Cardiac:: Present: S1, S2 - GI Exam GI:: Present: soft - Skin Exam Skin: Present: warm, dry, rash - Neurological Exam Neurological: Present: alert, awake, normal cognition - Extremities Exam Extremities: Present: no cyanosis, no clubbing Comments: Bilateral lower extremity swelling and erythema noted Assessment and Plan (1) Acute exacerbation of chronic obstructive airways disease Status: Acute Category: Medical Code(s): J44.1 - Chronic obstructive pulmonary disease with (acute) exacerbation (2) Left bundle branch block (LBBB) Status: Acute Category: Medical Code(s): I44.7 - Left bundle-branch block, unspecified (3) Respiratory failure with hypercapnia Status: Acute Qualifiers: Chronicity: acute on chronic Qualified Code(s): J96.22 - Acute and chronic respiratory failure with hypercapnia Category: Medical Code(s): J96.92 - Respiratory failure, unspecified with hypercapnia (4) Obesity (BMI 30-39.9) Status: Chronic Category: Medical Code(s): E66.9 - Obesity, unspecified (5) Hyponatremia Status: Acute Category: Medical Code(s): E87.1 - Hypo-osmolality and hyponatremia (6) Anemia Status: Acute Qualifiers: Anemia type: unspecified type Qualified Code(s): D64.9 - Anemia, unspecified Category: Medical Code(s): D64.9 - Anemia, unspecified - Assessment and plan all Dx Assessment and Plan for all problems:: #COPD exacerbation: 70-year-old prior smoker carries a diagnosis of pending worsening respiratory failure. Patient noncompliant with his inhalers. Not on any oxygen. Chest x- ray clear with no pulmonary infiltrates on admission. ABG showed hypoxic and hypercarbic respiratory failure, with relatively normal pH and 7.37 likely CO2 is close to his baseline. Febrile. No evidence of leukocytosis. Blood cultures pending. Denies any productive phlegm Patient admission needing 2 L nasal cannula, managed for COPD exacerbation with doxycycline steroids along with diuretics for his volume overload. Patient respiratory status gradually improved this morning on room air saturating 90 to 92%. Patient also noted to be desaturating at night with sleep, concerning for sleep apnea. Patient today also stated that he is using oxygen on a as needed basis at skilled nursing. Plan: - DuoNebs every 6 hours along budesonide every 12 scheduled, consider discharging the patient on triple inhaler therapy -Albuterol as needed - Continue doxycycline and prednisone for a total of 5 days -Continue nocturnal oxygen therapy at 2 L. We will follow the nocturnal oximetry testing to be performed on room air as an outpatient basis. #Thank you for involving pulmonary in this patient care. We will follow the patient in pulmonary clinic in 4 to 6 weeks with a full PFT, 6-minute walk testing and a nocturnal pulse oximetry testing
--- NOTE | 2020-04-29 11:05 | PC.NURSE ---
Report called to Lisbeth Ortiz @ [facility] @ 110. [facility] notified of transfer @ 1106.
== END 2020-04-29 12:15 | DRG 189 ==
LOC: ER 06:56 → 2ND 08:20
PROVIDERS: Physician Assistant; Admitting Provider Emergency Medicine; Emergency Provider Emergency Medicine; PCP Emergency Medicine; Visit Provider Emergency Medicine
DX: J96.22 Acute and chronic respiratory failure with hypercapnia (principal); J44.1 Chronic obstructive pulmonary disease with (acute) exacerbation; E87.1 Hypo-osmolality and hyponatremia; I50.30 Unspecified diastolic (congestive) heart failure; I44.7 Left bundle-branch block, unspecified; I11.0 Hypertensive heart disease with heart failure; Z87.891 Personal history of nicotine dependence; Z88.0 Allergy status to penicillin; Z79.899 Other long term (current) drug therapy; Z79.01 Long term (current) use of anticoagulants
CPT/HCPCS: 36415; 71045; 80048; 80053; 81001; 82803; 83605; 83735; 83880; 84145; 84443; 84484; 85025; 85651; 86140; 87040; 87077; 93005; 93306; 94640; 96365; 96367; 96375; 99284; J1956

== ENCOUNTER 2020-05-14 20:18 | Observation (INO) | payer MEDICARE, MEDICAID, SELFPAY ==
[2020-05-14] VITALS (10 sets, daily range): BP systolic 129–159; BP diastolic 68–80; PULSE 82–94; RESP 24; TEMP 38; O2SAT 88–95; BMI 37.0; BMI 41.9
--- NOTE | 2020-05-14 20:41 | ECG_ITS ---
APPROVED REPORT Exam: Resting ECG HR:91 bpm ECG Measurements Heart Rate 91 AXES NH P 93 QRSd 170 QRS 13 QT 410 T 169 QTc 504 Conclusion Sinus tachycardia with 2nd degree AV block ([place] I) with 2:1 AV conduction with premature ventricular complexes or fusion complexes Left bundle branch block Abnormal ECG Electronically signed by : Bari Villatoro, 05/15/2020 13:15:49
--- NOTE | 2020-05-14 20:41 | XR_ITS ---
PROCEDURE: XR CHEST AP CLINICAL HISTORY: SOA w/ chest pain COMPARISON: CR XR CHEST PORTABLE from 09/09/2019 CR XR CHEST PORTABLE from 04/26/2020 CR XR CHEST PORTABLE from 04/28/[address] CHEST WO CON from 05/14/2020 FINDINGS: Mild cardiomegaly and mild prominence of the mediastinum overall not significantly changed. No evidence of CHF. The lungs are clear without infiltrates, suspicious nodules, or pleural effusions. No acute bony abnormalities. IMPRESSION: Cardiomegaly otherwise negative Dictated by: Angel Sagastume MD 05/15/2020 05:20 Angel Sagastume MD in [facility] 05/15/2020 05:20
--- NOTE | 2020-05-14 20:41 | CT_ITS ---
PROCEDURE: CT CHEST WO CON CLINICAL INDICATION: abd pain Pain and shortness of breath COMPARISON: CT CT ANGIO CHEST from 05/08/2019 TECHNIQUE: Axial images obtained with sagittal and coronal reformats. All CT scans at the facility use one or more dose reduction, viz: automated exposure control, ma/kV adjustment per patient size (including targeted exams where dose is matched to indication, i.e. head), or iterative reconstruction technique. FINDINGS: HEART AND MEDIASTINAL STRUCTURES: No mediastinal or hilar mass. Coronary artery calcifications are present. Normal heart size. LUNGS AND PLEURAL SPACES: Scattered atelectatic and/or fibrotic changes with trace right effusion. The BONY STRUCTURES: Degenerative changes. Mild chronic wedging of L1. ADDITIONAL FINDINGS: Gynecomastia bilaterally. IMPRESSION: As above, scattered atelectatic and/or fibrotic change with trace right effusion Dictated by: Angel Sagastume MD 05/15/2020 06:14 Angel Sagastume MD in [facility] 05/15/2020 06:14
--- NOTE | 2020-05-14 20:41 | CT_ITS ---
PROCEDURE: CT ABDOMEN PELVIS WO CON CLINICAL INDICATION: abd pain Abdominal pain COMPARISON: CT CT ABDOMEN PELVIS WO CON from 09/18/[address] CHEST WO CON from 05/14/2020 TECHNIQUE: Axial images obtained with sagittal and coronal reformats. All CT scans at the facility use one or more dose reduction, viz: automated exposure control, ma/kV adjustment per patient size (including targeted exams where dose is matched to indication, i.e. head), or iterative reconstruction technique. FINDINGS: The liver has an unremarkable unenhanced appearance. Mild/borderline splenomegaly at 13 cm. Diffuse fatty infiltration of the pancreas. No adrenal mass. Motion artifact somewhat obscures fine detail. There are multiple right renal calculi which are better seen on the chest CT secondary to the diffuse motion on this exam. Moderate right hydronephrosis. A 9 mm stone is present in the right renal pelvis posteriorly. Prominent right renal pelvis with normal caliber right ureter consistent with UPJ obstruction on the right which appears chronic. There is mild prominence of the left renal collecting system. There is mild stranding of the left perinephric renal fat. There is mild prominence of the appendix at approximately 1 cm in diameter but no stranding of the periappendiceal fat. Beam hardening artifact noted in the pelvis from bilateral hip prosthesis. There is mild thickening of the urinary bladder. Small amount of gas is present in the urinary bladder. Bowel gas pattern is nonspecific with some nondistended fluid-filled loops of small bowel in a few scattered air-fluid levels. Chronic wedging is noted involving L1 vertebral body not significantly changed. There is superior dislocation of the left femoral prosthesis. The left acetabular cup is tilted upward. 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 This does appear to be a chronic finding not significantly changed. IMPRESSION: 1. Right nephrolithiasis with right UPJ obstruction with a 9 mm stone in the dilated right renal pelvis. 2. There is mild urinary bladder wall thickening which may be seen with incomplete distension, chronic outflow obstruction, or cystitis. Small amount of gas is present in the urinary bladder and could be due to infection or catheterization. 3. 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 Prominence of the appendix nonspecific. No stranding of the periappendiceal fat. Please correlate with clinical findings. Dictated by: Angel Sagastume MD 05/15/2020 06:23 Angel Sagastume MD in [place] 05/15/2020 06:23
--- NOTE | 2020-05-14 20:45 | HMH.EDSOB ---
ED Disposition Clinical Impression: Severe sepsis with acute organ dysfunction, Left bundle branch block (LBBB), PLACIDO (acute kidney injury), Wheelchair bound UTI (urinary tract infection) Qualifiers: Urinary tract infection type: site unspecified Hematuria presence: without hematuria Qualified Code(s): N39.0 - Urinary tract infection, site not specified Obesity Qualifiers: Obesity type: due to excess calories Obesity classification: adult class 3 (BMI >= 40) Serious obesity comorbidity presence: with serious comorbidity Body mass index: BMI 40.0-44.9 Qualified Code(s): E66.01 - Morbid (severe) obesity due to excess calories; Z68.41 - Body mass index [BMI]40.0-44.9, adult Disposition: Admitted as Observation Condition on Discharge: Serious Referrals: Vlad Dixon MD [Primary Care Provider] - - Critical Care Critical Care Time: No Attestation: On 05/14/20, the high probability of a clinically significant, sudden or life threatening deterioration of the following system(s) required my full and direct attention, intervention and personal management. The time I documented below is in addition to time spent performing reported procedures but includes the following listed in this critical care notation. Medical Decision Making - Medical Records Medical records reviewed: Yes: I reviewed the patient's medical records. - Andi Inquiry Pt receiving controlled substance: No Vital Signs: 05/14/20 20:22 05/14/20 20:30 05/14/20 21:10 Temperature 100.4 F H Temperature Source Oral Pulse Rate 93 H 86 Pulse Rate [Right] 94 H Respiratory Rate 24 Blood Pressure 141/68 H Blood Pressure [Left Arm] 129/69 Blood Pressure Mean Blood Pressure Mean [Left Arm] 89 Blood Pressure Source [Left Arm] Automatic Cuff Blood Pressure Position [Left Arm] Supine 02 Sat by Pulse Oximetry 95 88 L Oxygen Delivery Method Nasal Cannula Oxygen Flow Rate (LPM) 05/14/20 21:15 05/14/20 21:47 05/14/20 22:15 Temperature Temperature Source Pulse Rate 91 H 90 87 Pulse Rate [Right] Respiratory Rate Blood Pressure 148/74 H Blood Pressure [Left Arm] Blood Pressure Mean Blood Pressure Mean [Left Arm] Blood Pressure Source [Left Arm] Blood Pressure Position [Left Arm] 02 Sat by Pulse Oximetry 94 L 93 L 93 L Oxygen Delivery Method Oxygen Flow Rate (LPM) 05/14/20 22:20 05/14/20 22:30 05/14/20 23:00 Temperature Temperature Source Pulse Rate 88 88 85 Pulse Rate [Right] Respiratory Rate Blood Pressure 148/74 H 147/80 H 152/76 H Blood Pressure [Left Arm] Blood Pressure Mean Blood Pressure Mean [Left Arm] Blood Pressure Source [Left Arm] Blood Pressure Position [Left Arm] 02 Sat by Pulse Oximetry 92 L 91 L 92 L Oxygen Delivery Method Oxygen Flow Rate (LPM) 05/14/20 23:30 05/15/20 00:00 05/15/20 00:30 Temperature Temperature Source Pulse Rate 82 85 81 Pulse Rate [Right] Respiratory Rate 16 Blood Pressure 159/78 H 155/79 H 133/74 Blood Pressure [Left Arm] Blood Pressure Mean 100 93 Blood Pressure Mean [Left Arm] Blood Pressure Source [Left Arm] Blood Pressure Position [Left Arm] 02 Sat by Pulse Oximetry 95 94 L 94 L Oxygen Delivery Method Nasal Cannula Nasal Cannula Oxygen Flow Rate (LPM) 2 2 05/15/20 01:00 05/15/20 01:30 05/15/20 02:00 Temperature Temperature Source Pulse Rate 79 76 68 Pulse Rate [Right] Respiratory Rate 18 Blood Pressure 140/73 152/71 H 141/70 H Blood Pressure [Left Arm] Blood Pressure Mean Blood Pressure Mean [Left Arm] Blood Pressure Source [Left Arm] Blood Pressure Position [Left Arm] 02 Sat by Pulse Oximetry 94 L 94 L 94 L Oxygen Delivery Method Nasal Cannula Nasal Cannula Nasal Cannula Oxygen Flow Rate (LPM) 2 2 2 05/15/20 02:30 05/15/20 03:00 05/15/20 03:30 Temperature Temperature Source Pulse Rate 74 67 68 Pulse Rate [Right] Respirat
[2020-05-14 21:04] LABS: Basophils % 0.1 % (0.1-2.0); Eosinophils % 0.1 % (0.1-12.0); Hematocrit 40.2 % (42.0-52.0); Hemoglobin 12.3 g/dL (14.1-18.0); Lymphocytes # 0.9 K/mm3 (0.7-4.5); Lymphocytes % 3.2 % (10-50); MANUAL DIFFERENTIAL MANUAL DIFFERENTIAL (MANUAL DIFF); Mean Corpuscular HGB Conc 30.5 g/dL (31.8-35.4); Mean Corpuscular Hemoglobin 26.1 pg (27.0-31.2); Mean Corpuscular Volume 85.7 fl (80-94); Mean Platelet Volume 7.8 fl (7.4-10.4); Monocytes # 1.1 K/mm3 (0.1-1.0); Neutrophils # 25.5 K/mm3 (1.8-7.8); Neutrophils % 92.6 % (37.0-80.0); Platelet Count 406 K/mm3 (142-424); Red Blood Count 4.69 M/mm3 (4.60-6.20); Red Cell Distribution Width 14.8 % (11.5-17.5); White Blood Count 27.5 K/mm3 (4.8-10.8)
[2020-05-14 21:08] LABS: Alanine Aminotransferase 32 U/L (12-78); Albumin Level 3.5 g/dl (3.5-5.0); Albumin/Globulin Ratio 1.1 (1.1-1.8); Alkaline Phosphatase 53 U/L (38-126); Amylase 31 U/L (30-110); Anion Gap 13.7 mEq/L (5-15); Aspartate Amino Transferase 40 U/L (17-59); Bilirubin,Total 0.9 mg/dl (0.2-1.3); Blood Urea Nitrogen 50 mg/dl (9-20); Calcium 9.2 mg/dl (8.4-10.2); Carbon Dioxide 31 mmol/L (22.0-30.0); Chloride 96 mmol/L (98-107); Creatinine Clearance Estimated 53 mL/min (50-200); Estimated Glomerular Filt Rate 31 ml/min (>60); GFR (African American) 38 ML/MIN (>60); Globulin 3.2 g/dL (1.3-3.2); Glucose 241 mg/dl (74-100); Lipase 12 U/L (23-300); Potassium 3.7 mmoL/L (3.5-5.1); Sodium 137 mmol/L (136-145); Total Protein,Serum 6.7 g/dl (6.3-8.2)
[2020-05-14 21:23] LABS: Troponin I 0.04 ng/ml (0.00-0.034)
[2020-05-14 21:27] LABS: Procalcitonin 28.1 ng/mL (0.0-2.0)
[2020-05-14 21:30] LABS: ABG Base Excess 6.7 mmol/L (-2.4-2.3); ABG HCO3 30.9 mmhg (22.0-26.0); ABG Oxygen Saturation 96 % (90-100); ABG PCO2 46.8 mmhg (35.0-45.0); ABG PH 7.44 mmol/L (7.35-7.45); ABG PO2 72.4 mmhg (80-100); ABG TCO2 32.4 mmhg (23-27)
[2020-05-14 21:32] LABS: Allen's Test Acceptable; Source Left Radial
[2020-05-14 21:33] LABS: C-Reactive Protein 453.5 mg/L (0-4)
[2020-05-14 21:58] LABS: Erythrocyte Sedimentation Rate 87 mm/hr (0-20)
[2020-05-14 22:13] LABS: Lymphocytes % 4 % (10-50); Monocytes % 1 % (2-9); Neutrophils % 95 % (42-76); Total Cells Counted 100
[2020-05-14 22:14] LABS: Platelet Estimate Normal; Stomatocytes 1+
[2020-05-15] VITALS (18 sets, daily range): BP systolic 126–155; BP diastolic 65–79; PULSE 61–85; RESP 16–18; TEMP 36.6–36.7; O2SAT 92–95; BMI 38.8; BMI 38.9
[2020-05-15 00:20] LABS: Troponin I 0.03 ng/ml (0.00-0.034)
[2020-05-15 00:40] LABS: Appearance,Urine CLEAR (Clear); Blood, Urine 2+ (Negative); Glucose,Urine (UA) Negative (Negative); Ketones,Urine Negative (Negative); Leukocyte Esterase,Urine 2+ (Negative); Nitrate,Urine Negative (Negative); Protein,Urine 1+ (Negative)
[2020-05-15 03:12] LABS: Microscopic, Urine URINE MICROSCOPIC (MICROSCOPIC)
[2020-05-15 03:50] LABS: Troponin I 0.03 ng/ml (0.00-0.034)
[2020-05-15 03:57] LABS: Lactic Acid 2.7 mmol/L (0.7-2.1)
[2020-05-15 03:58] LABS: Amorphous Sediment,Urine 1+ /lpf; Bacteria,Urine 2+ /lpf; Bilirubin,Urine Negative (Negative); Color,Urine Dark Yellow (Yellow); Mucus,Urine 1+ /lpf
[2020-05-15 04:18] LABS: Reflex Lactic Add Lactic Reflex
[2020-05-15 05:32] LABS: Lactic Acid Follow Up (RFLX 1) 0.7 mmol/L (0.7-2.1)
--- NOTE | 2020-05-15 06:31 | PC.NURSE ---
He refuses to have pictures taken of skin. Witnessed by Brandi Hernandez RN.
--- NOTE | 2020-05-15 06:35 | PC.NURSE ---
PT ON FLOOR IA STRETCHER AT 0616. K.M
--- NOTE | 2020-05-15 09:22 | SW/DCPLANNER ---
Addendum entered by Milagros Vu 05/15/20 14:04: I have notified Connie that this patient will discharge back today once PICC line is placed. Original Note: This patient currently resides at [facility]. I have spoke with Connie from [place] this morning and she has stated that patient is SNF level of care. I have informed Connie that pending labs patient may get a PICC line this afternoon then discharge back. I will continue to follow up with and Connie from [place].
--- NOTE | 2020-05-15 09:34 | P.CONPHA_ITS ---
[facility] Pharmacy VTE Monitoring - Patient Demographics Admission date: 05/15/20 Report Date: 05/15/20 Time: 09:34 Allergies/Adverse Reactions: Patient Allergies Penicillins [PENICILLINS] Allergy (Intermediate, Verified 05/15/20 06:49) I-HIVES Height: 1.68 m Weight: 109.543 kg Patient Problems: Current Active Problems Left bundle branch block (LBBB) (Acute) Severe sepsis with acute organ dysfunction (Acute) UTI (urinary tract infection) (Acute) Obesity (Acute) PLACIDO (acute kidney injury) (Acute) Wheelchair bound (Chronic) - VTE Risk Labs: VTE Related Lab Results Hgb 12.3 g/dL (14.1-18.0) L 05/14/20 20:35 Hct 40.2 % (42.0-52.0) L 05/14/20 20:35 Plt Count 406 K/mm3 (142-424) 05/14/20 20:35 BUN 50 mg/dl (9-20) H 05/14/20 20:35 Creatinine 2.10 mg/dl (0.66-1.25) H 05/14/20 20:35 Estimated Creat Clear 53 mL/min (50-200) 05/14/20 20:35 Was VTE Risk Assessment Performed: Yes VTE Score: 6 VTE Risk Level: Moderate Risk - Prophylaxis Types of VTE Prophylaxis: TEDS Knee High ([place] ORDERED)
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
[2020-05-15 13:00] LABS: Procalcitonin 17.8 ng/mL (0.0-2.0)
--- NOTE | 2020-05-15 13:04 | HMH.PHAINT ---
MEDICATION RECONCILIATION COMPLETED ON PATIENT USING MAR FROM CUSTODIAL. -JANE ARCOS, SHASHANKD
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
--- NOTE | 2020-05-15 15:59 | XR_ITS ---
PROCEDURE: XR CHEST PORTABLE CLINICAL HISTORY: PICC Placement COMPARISON: CR XR CHEST PORTABLE from 04/26/2020 CR XR CHEST PORTABLE from 04/28/[address] CHEST WO CON from 05/14/2020 CR XR CHEST AP from 05/14/2020 CR XR CHEST PORTABLE from 05/15/2020 FINDINGS: 1616 hours Right upper extremity PICC line has been inserted. The line is directed toward the right neck not in satisfactory position. There are atelectatic changes in the lower lobes and there is mild cardiomegaly. IMPRESSION: Abnormal placement of PICC line on the right as described above. Dictated by: Angel Sagastume MD 05/15/2020 16:51 Angel Sagastume MD in [place] 05/15/2020 16:51
--- NOTE | 2020-05-15 16:30 | XR_ITS ---
PROCEDURE: XR CHEST PORTABLE CLINICAL HISTORY: PICC Placement COMPARISON: CR XR CHEST PORTABLE from 04/28/[address] CHEST WO CON from 05/14/2020 CR XR CHEST AP from 05/14/2020 CR XR CHEST PORTABLE from 05/15/2020 FINDINGS: 1632 hours PICC line has been reposition. The right upper extremity PICC line tip now is in the region of the distal SVC in satisfactory position. Cardiomegaly with bibasilar atelectatic change once again noted. No acute bony abnormalities. IMPRESSION: PICC line reposition now in good position. Dictated by: Angel Sagastume MD 05/15/2020 16:52 Angel Sagastume MD in [place] 05/15/2020 16:52
[2020-05-16 21:04] LABS: Peripheral Smear Review Scanned Result
== END 2020-05-15 16:50 ==
LOC: ER 05-15 05:24 → 2ND 05-15 05:30
PROVIDERS: Nurse Practitioner Family; Admitting Provider Emergency Medicine; Emergency Provider Emergency Medicine; PCP Emergency Medicine; Visit Provider Emergency Medicine
DX: N39.0 Urinary tract infection, site not specified (principal); R07.9 Chest pain, unspecified; J44.9 Chronic obstructive pulmonary disease, unspecified; I25.10 Atherosclerotic heart disease of native coronary artery without angina pectoris; F32.9 Major depressive disorder, single episode, unspecified; E78.5 Hyperlipidemia, unspecified; Z87.891 Personal history of nicotine dependence; Z86.711 Personal history of pulmonary embolism; I11.0 Hypertensive heart disease with heart failure; K21.9 Gastro-esophageal reflux disease without esophagitis; Z91.19 Patient's noncompliance with other medical treatment and regimen; I50.32 Chronic diastolic (congestive) heart failure; Z68.39 Body mass index [BMI] 39.0-39.9, adult; Z99.3 Dependence on wheelchair; E66.01 Morbid (severe) obesity due to excess calories; Z99.81 Dependence on supplemental oxygen; Z88.0 Allergy status to penicillin; Z96.643 Presence of artificial hip joint, bilateral; Z79.01 Long term (current) use of anticoagulants
CPT/HCPCS: 36569; 36415; 71045; 71250; 74176; 80053; 81001; 82150; 82803; 83605; 83690; 84145; 84484; 85007; 85025; 85651; 86140; 87040; 87077; 87086; 87088; 87186; 93005; 96365; 96366; 96367; 96375; 99284; C1751; G0378; J1335; U0003

== ENCOUNTER → 2020-05-20 15:11 | Outpatient (CLI) | payer MEDICARE, MEDICAID, SELFPAY | PROVIDERS: Visit Provider Emergency Medicine | DX: R07.9 Chest pain, unspecified (principal); R06.02 Shortness of breath; R10.9 Unspecified abdominal pain | CPT/HCPCS: 83605 ==

== ENCOUNTER → 2020-06-06 14:51 | Outpatient (CLI) | payer MEDICARE, MEDICAID, SELFPAY ==
--- NOTE | 2020-06-06 15:59 | RESP.PFTSS ---
patient could not perform testing
== END ==
PROVIDERS: PCP Emergency Medicine; Visit Provider Internal Medicine Pulmonary Disease
DX: J44.9 Chronic obstructive pulmonary disease, unspecified (principal)

== ENCOUNTER 2021-07-30 15:13 | Emergency (ER) | payer OTHER, MEDICARE, MEDICAID, SELFPAY ==
[2021-07-30] VITALS (9 sets, daily range): BP systolic 132–164; BP diastolic 55–81; PULSE 45–60; RESP 16–18; TEMP 36.6–36.8; O2SAT 95–100; BMI 49.7
--- NOTE | 2021-07-30 14:34 | ECG_ITS ---
APPROVED REPORT Exam: Resting ECG HR:47 bpm ECG Measurements Heart Rate 47 AXES IN 160 P -14 QRSd 165 QRS 56 QT 536 T 77 QTc 498 Conclusion SINUS BRADYCARDIA LEFT BUNDLE BRANCH BLOCK [120+ ms QRS DURATION, 80+ ms Q/S IN V1/V2, 85+ ms R IN I/aVL/V5/V6] ABNORMAL ECG UNCONFIRMED REPORT Electronically signed by : Bari Villatoro MD 07/31/2021 08:25:36
--- NOTE | 2021-07-30 14:34 | PC.NURSE ---
pt brought in by [facility] to ED room 7; transferred from EMS stretcher to ED stretcher with assist x4; no complications. EKG performed and given to ER MD. pt hooked to monitor and triage complete. No other needs at this time
--- NOTE | 2021-07-30 14:37 | HMH.EDGENADL ---
ED Disposition Clinical Impression: Pulmonary emboli Qualifiers: Pulmonary embolism type: unspecified Chronicity: acute Acute cor pulmonale presence: without acute cor pulmonale Qualified Code(s): I26.99 - Other pulmonary embolism without acute cor pulmonale Disposition: Home, Self-Care Condition on Discharge: Fair Additional Instructions: Restart Xarelto, Dr. Dixon will prescribe this tomorrow. Referrals: Provider,Referral, MD [Primary Care Provider] - - Critical Care Critical Care Time: No Attestation: On , the high probability of a clinically significant, sudden or life threatening deterioration of the following system(s) required my full and direct attention, intervention and personal management. The time I documented below is in addition to time spent performing reported procedures but includes the following listed in this critical care notation. Medical Decision Making - Medical Records Medical records reviewed: Yes: I reviewed the patient's medical records. MR Comment: Reviewed most recent cardiology office note 05/13/2021. Patient noted to have a nonluminal coronary artery disease per his most recent cardiac cath 08/02/2018. Reviewed pulmonary CTA result 05/08/2019 which showed pulmonary emboli. Patient was discharged on Xarelto at that time, but is now on hospice and cardiology office note indicates that Xarelto was discontinued by hospice. - Andi Inquiry Pt receiving controlled substance: No Vital Signs: 07/30/21 14:39 07/30/21 14:58 07/30/21 15:00 Temperature 97.8 F Temperature Source Oral Pulse Rate 45 L 50 L Pulse Rate [Left Radial] 47 L Respiratory Rate 18 17 16 Blood Pressure 158/59 H 141/65 H Blood Pressure [Right Arm] 158/55 H Blood Pressure Mean Blood Pressure Mean [Right Arm] 89 02 Sat by Pulse Oximetry 95 98 99 Oxygen Delivery Method Nasal Cannula Nasal Cannula Nasal Cannula Oxygen Flow Rate (LPM) 2 2 2 07/30/21 15:56 07/30/21 16:25 07/30/21 17:00 Temperature Temperature Source Pulse Rate 58 L 49 L 53 L Pulse Rate [Left Radial] Respiratory Rate 17 16 16 Blood Pressure 137/62 152/66 H 132/64 Blood Pressure [Right Arm] Blood Pressure Mean 105 94 Blood Pressure Mean [Right Arm] 02 Sat by Pulse Oximetry 99 98 98 Oxygen Delivery Method Nasal Cannula Nasal Cannula Nasal Cannula Oxygen Flow Rate (LPM) 2 2 2 07/30/21 17:55 07/30/21 18:31 Temperature Temperature Source Pulse Rate 60 56 L Pulse Rate [Left Radial] Respiratory Rate 17 Blood Pressure 161/81 H 164/64 H Blood Pressure [Right Arm] Blood Pressure Mean 106 97 Blood Pressure Mean [Right Arm] 02 Sat by Pulse Oximetry 99 100 Oxygen Delivery Method Nasal Cannula Nasal Cannula Oxygen Flow Rate (LPM) 2 2 - Lab Data Lab Results 07/30/21 15:00: WBC 10.4, RBC 4.27 L, Hgb 11.3 L, Hct 35.1 L, MCV 82.4, MCH 26.6 L, MCHC 32.3, RDW 14.5, Plt Count 505 H, MPV 7.7, Neut % (Auto) 85.6 H, Lymph % (Auto) 9.7 L, [place] % (Auto) 3.3, Eos % (Auto) 0.9, Baso % (Auto) 0.5, Neut # (Auto) 8.9 H, Lymph # (Auto) 1.0, [place] # (Auto) 0.4, Eos # (Auto) 0.1, Baso # (Auto) 0.1, Total Counted 100, Neutrophils % (Manual) 82 H, Lymphocytes % (Manual) 16, Monocytes % (Manual) 2, Platelet Estimate Slight increase, Hypochromasia 1+, Anisocytosis 1+ 07/30/21 15:00: Sodium 133 L, Potassium 4.1, Chloride 91 L, Carbon Dioxide 37 H, Anion Gap 9.1, BUN 19, Creatinine 1.10, Estimated Creat Clear 48, Estimated GFR 66, Est GFR ( Amer) 79, Glucose 155 H, Calcium 9.2, Troponin I < 0.01 07/30/21 17:20: Troponin I < 0.01 Result diagrams: 07/30/21 15:00 07/30/21 15:00 Orders (Tests/Meds): ED MEDICATIONS Discontinued Medications Generic Name Dose Route Start Last Admin Trade Name Freq PRN Reason Stop Dose Admin Enoxaparin Sodium 125 mg 07/30/21 18:03 07/30/21 18:32 Enoxaparin 100mg/Ml Syringe 1 mg/kg (125 mg) 07/30/21 18:04 125 mg SQ Administration ONCE ONE Iopamidol 70 ml 07/30/21 16:56 07/10
--- NOTE | 2021-07-30 14:48 | XR_ITS ---
FINAL REPORT CLINICAL HISTORY: LT SIDED CP X 2 DAYS COMPARISON: May 15, 2020 FINDINGS: A single portable view of the chest was obtained. The heart is enlarged. There is pulmonary vascular congestion. The mediastinum is within normal limits. There is mild left lung atelectasis or scarring. The bony thorax is intact. IMPRESSION: Mild left lung atelectasis or scarring. Reviewed, Interpreted and Dictated by Librado Rodriguez III, MD Transcribed by Yasmine Lee Authenticated and [facility]
[2021-07-30 15:16] LABS: Basophils # 0.1 K/mm3 (0-0.2); Basophils % 0.5 % (0.1-2.0); Eosinophils # 0.1 K/mm3 (0.0-0.4); Eosinophils % 0.9 % (0.1-12.0); Hematocrit 35.1 % (42.0-52.0); Hemoglobin 11.3 g/dL (14.1-18.0); Lymphocytes % 9.7 % (10-50); Mean Corpuscular HGB Conc 32.3 g/dL (31.8-35.4); Mean Corpuscular Hemoglobin 26.6 pg (27.0-31.2); Mean Corpuscular Volume 82.4 fl (80-94); Mean Platelet Volume 7.7 fl (7.4-10.4); Monocytes # 0.4 K/mm3 (0.1-1.0); Monocytes % 3.3 % (1.7-9.3); Neutrophils # 8.9 K/mm3 (1.8-7.8); Neutrophils % 85.6 % (37.0-80.0); Platelet Count 505 K/mm3 (142-424); Red Blood Count 4.27 M/mm3 (4.60-6.20); Red Cell Distribution Width 14.5 % (11.5-17.5); White Blood Count 10.4 K/mm3 (4.8-10.8)
[2021-07-30 15:18] LABS: Chloride 91 mmol/L (98-107); MANUAL DIFFERENTIAL MANUAL DIFFERENTIAL (MANUAL DIFF); Sodium 133 mmol/L (136-145)
[2021-07-30 15:19] LABS: Potassium 4.1 mmoL/L (3.5-5.1)
[2021-07-30 15:21] LABS: Blood Urea Nitrogen 19 mg/dl (9-20); Creatinine Clearance Estimated 48 mL/min (50-200); Estimated Glomerular Filt Rate 66 ml/min (>60); GFR (African American) 79 ML/MIN (>60)
[2021-07-30 15:22] LABS: Anion Gap 9.1 mEq/L (5-15); Calcium 9.2 mg/dl (8.4-10.2); Carbon Dioxide 37 mmol/L (22.0-30.0); Glucose 155 mg/dl (74-100)
[2021-07-30 15:43] LABS: Troponin I < 0.01 ng/ml (0.00-0.034)
[2021-07-30 15:48] LABS: Lymphocytes % 16 % (10-50); Monocytes % 2 % (2-9); Neutrophils % 82 % (42-76); Total Cells Counted 100
[2021-07-30 15:49] LABS: Anisocytosis 1+; Hypochromasia 1+; Platelet Estimate Slight Increase
--- NOTE | 2021-07-30 15:51 | PC.NURSE ---
on the phone with
--- NOTE | 2021-07-30 16:25 | CT_ITS ---
PROCEDURE INFORMATION: Exam: CTA Chest With Contrast Exam date and time: 07/30/2021 4:46 PM Age: 71 years old Clinical indication: Chest wall pain; Additional info: Left sided chest pain x 3 days, h/o pe TECHNIQUE: Imaging protocol: Computed tomographic angiography of the chest with contrast. 3D rendering (Not supervised by radiologist): MIP and/or 3D reconstructed images were created by the technologist. Radiation optimization: All CT scans at this facility use at least one of these dose optimization techniques: automated exposure control; mA and/or kV adjustment per patient size (includes targeted exams where dose is matched to clinical indication); or iterative reconstruction. Contrast material: ISOVUE 370; Contrast volume: 70 ml; Contrast route: INTRAVENOUS (IV); COMPARISON: CT ANGIO CHEST 05/08/2019 1:11 PM FINDINGS: Pulmonary arteries: Findings are consistent with pulmonary emboli. No other filling defects are present within the pulmonary arteries. Aorta: Unremarkable. No aortic aneurysm. No aortic dissection. Lungs: Filling defects are present within the pulmonary arteries to the right lower lobe (series 5, image 68 and 69 and series 1001 images 55 and 56). Atelectatic changes noted within the left lung base with left pleural effusion. Pleural spaces: There is no evidence of pneumothorax. Heart: Mild right heart strain. Heart demonstrates mild diffuse enlargement. Lymph nodes: There is no evidence of mediastinal or hilar lymphadenopathy. Diaphragm: A small hiatal hernia is present. Kidneys and ureters: Multiple calcifications present within the right kidney measuring up to 1.3 cm. Bones/joints: Compression deformity of L1 is present, age is indeterminate. The thoracic spine demonstrates mild degenerative changes at multiple levels. Soft tissues: Unremarkable. IMPRESSION: 1. Pulmonary emboli present within the arteries to the right lower lobe. 2. Mild right heart strain. 3. Mild cardiomegaly. 4. Atelectatic changes noted within the left lung base with left pleural effusion.
--- NOTE | 2021-07-30 16:43 | PC.NURSE ---
pt being transported to radiology
--- NOTE | 2021-07-30 18:42 | PC.NURSE ---
per MD request, pt holding until dr muñoz comes to shift for consult
[2021-07-30 19:46] LABS: Troponin I < 0.01 ng/ml (0.00-0.034)
--- NOTE | 2021-07-30 20:45 | PC.NURSE ---
called report to Kit
== END 2021-07-30 21:09 | disposition home or self-care (01) ==
PROVIDERS: Emergency Provider Emergency Medicine
DX: I26.99 Other pulmonary embolism without acute cor pulmonale (principal); Z88.0 Allergy status to penicillin; Z79.899 Other long term (current) drug therapy; J44.9 Chronic obstructive pulmonary disease, unspecified; I25.10 Atherosclerotic heart disease of native coronary artery without angina pectoris; E78.5 Hyperlipidemia, unspecified; I11.0 Hypertensive heart disease with heart failure; I50.9 Heart failure, unspecified; K21.9 Gastro-esophageal reflux disease without esophagitis; Z99.81 Dependence on supplemental oxygen; Z87.19 Personal history of other diseases of the digestive system; D64.9 Anemia, unspecified; M19.90 Unspecified osteoarthritis, unspecified site
CPT/HCPCS: 36415; 71045; 71275; 80048; 84484; 85007; 85025; 93005; 96374; 96375; 99284; J2405; Q9967

== ENCOUNTER → 2021-11-17 10:58 | Outpatient (CLI) | payer OTHER, MEDICARE, MEDICAID, SELFPAY ==
--- NOTE | 2021-11-17 11:02 | CA_ITS ---
APPROVED REPORT EXAM: Comprehensive 2D, Doppler, and color-flow Echocardiogram Vertical Lathe Operator: Franny Kulkarni RVT Ht: 5 ft 7 in Wt: 233lbs BSA: 2.16 BP: 136/91 mmHg Indications: SOA,PE,CHF,OBESITY,EX SMOKER,EDEMA,HX COVID PT SCANNED IN W/C BEST IMAGES POSSIBLE R/T PT CONDITION 2D Dimensions IVSd 2.01 cm M: 0.6-1.2 LVEF (Visual) 59.90 % PWd 1.51 cm M: 0.6 - 1.2 LA Volume 52.40 mL LVDd 4.36 cm M: 4.2 - 5.9 LA Volume Index 24.37 mL/m2 (M/F) 16-34 LVDs 2.98 cm M: 2.5 - 4.0 LVOT 2.42 cm (M/F) 1.5-2.5 M-Mode Dimensions LA Diam 2.64 cm (1.9-4.0) Ao Diam 3.39 cm (2.0-3.7) TAPSE 2.69 (<1.7) LV Diastology E Decel Time 150.00 (160-240 msec) E/A Ratio 0.5 MED E' 5.70 (< 7 cm/sec) E'/MED E' Ratio 5.79 (>14) LAT E' 6.40 (<10 cm/sec) E/LAT E' Ratio 5.16 (>14) Aortic Valve AI PHT 1012.00 ms AO Peak GR. 5.00 mmHg Mitral Valve MV E Max Herberth. 33.00 (40-130 cm/s) MV A Velocity 66.00 (40-130 cm/s) E/A Ratio 0.50 MV Decel. Time 150.00 (160-240 ms) MV PHT 44.00 ms Pulmonary Valve PV Peak Velocity 107.00 (50-150 cm/s) Tricuspid Valve TR P. Velocity 218.00 cm/s RAP Estimate 10.00 mmHg RVSP 29.00 mmHg Left Ventricle Technically difficult study because of the patient factors and poor acoustic windows. Endocardial surfaces are poorly visualized. Left atrium is mildly enlarged, left ventricle is normal size mild concentric left ventricular hypertrophy, estimated ejection fraction 55% with no regional wall motion abnormality, grade 1 diastolic dysfunction seen without tissue Doppler evidence of reduced left atrial pressure. Right Ventricle Right atrium and right ventricle are mildly enlarged with normal contractility. Aortic Valve Aortic valve is minimally thickened and fibrosed there is no aortic stenosis, there is mild aortic insufficiency. Mitral Valve Mitral valve grossly normal, there is trace mitral regurgitation. Tricuspid Valve Tricuspid valve grossly normal, there is trace tricuspid regurgitation, tricuspid regurgitation jet velocity is inadequate for calculation of the right ventricular systolic pressure. Pulmonic Valve Pulmonic valve is poorly visualized. Great Vessels Aortic root is normal size. Inferior vena cava is poorly visualized. Pericardium No significant pericardial effusion noted. Conclusion 1. Technically difficult study because of the patient factors and poor acoustic windows. Endocardial surface is poorly visualized. Mild biatrial enlargement, normal left ventricular size, mild concentric left ventricular hypertrophy, estimated ejection fraction 55% with no regional wall motion abnormality, grade 1 diastolic dysfunction seen without tissue Doppler evidence of raise left atrial pressure. 2. Bilateral ventricle with normal contractility. 3. Mild aortic, trace mitral and tricuspid regurgitation. 4. No significant pericardial effusion 5. Inferior vena cava is poorly visualized. Electronically signed by : Manan Alvarez MD 11/18/2021 06:12:14
== END ==
PROVIDERS: PCP Emergency Medicine; Visit Provider Nurse Practitioner Family
DX: E66.9 Obesity, unspecified (principal); I26.99 Other pulmonary embolism without acute cor pulmonale; I44.7 Left bundle-branch block, unspecified; R07.81 Pleurodynia; R55 Syncope and collapse; R60.9 Edema, unspecified; Z68.35 Body mass index [BMI] 35.0-35.9, adult; I47.29 Other ventricular tachycardia
CPT/HCPCS: 93306

== ENCOUNTER → 2022-02-10 16:23 | Outpatient (CLI) | payer MEDICARE, MEDICAID, SELFPAY | PROVIDERS: PCP Emergency Medicine; Visit Provider Emergency Medicine | DX: U07.1 COVID-19 (principal) | CPT/HCPCS: C9803; U0003; U0005 ==

== ENCOUNTER → 2023-01-20 07:00 | Outpatient (CLI) | payer MEDICARE, MEDICAID, SELFPAY ==
--- NOTE | 2023-01-20 07:11 | CT_ITS ---
FINAL REPORT TECHNIQUE: Axial images through the abdomen and pelvis were performed without contrast. This study was performed with techniques to keep radiation doses as low as reasonably achievable, (ALARA). Individualized dose reduction techniques using automated exposure control or adjustment of mA and/or kV according to the patient's size were employed. CLINICAL HISTORY: ABD PAIN,LUMP IN STOMACH FINDINGS: Abdomen: There is scarring at the left base. The liver parenchyma is homogeneous. The gallbladder is present. The spleen, pancreas, and adrenals are unremarkable. There are multiple large stones throughout the right renal collecting system measuring up to 2 cm in greatest dimension. No ureteral stones are identified. A prominent right intra there is a prominent right extrarenal pelvis. There is a small benign-appearing cyst in the left kidney. Pelvis: The urinary bladder is unremarkable. The appendix is not visualized. There is no pelvic mass or inflammation. Streak artifact is seen from bilateral hip arthroplasties. There is a protrusio defect of the left acetabulum with dislocation of the left hip prosthesis. There is marked indentation of the acetabulum by dislocation of the left femoral prosthesis head. There is also 50% compression deformity of L1. IMPRESSION: Right renal stones. Dislocation of left hip prosthesis. 50% compression deformity of L1. Reviewed, Interpreted and Dictated by Sergio Quintero MD Transcribed by Maddy Ribeiro Authenticated and [facility]
== END ==
PROVIDERS: PCP Emergency Medicine; Visit Provider Internal Medicine
DX: R10.9 Unspecified abdominal pain (principal); R19.00 Intra-abdominal and pelvic swelling, mass and lump, unspecified site
CPT/HCPCS: 74176

== ENCOUNTER 2023-03-04 11:43 | Outpatient (CLI) | payer MEDICARE, MEDICAID, SELFPAY ==
--- NOTE | 2023-03-04 11:48 | XR_ITS ---
FINAL REPORT TECHNIQUE: Chest PA & Lateral CLINICAL HISTORY: rhonci, shortness of breath COMPARISON: 07/30/2021 FINDINGS: 2 views of the chest were performed. The heart size is normal. The mediastinum is within normal limits. There is no acute cardiopulmonary process. The lungs are underinflated. There are no pleural effusions. There is no pneumothorax. The bony thorax appears intact. IMPRESSION: No acute cardiopulmonary process. Reviewed, Interpreted and Dictated by Sergio Quintero MD Transcribed by Yasmine Lee Authenticated and [facility]
== END 2023-03-04 23:59 ==
PROVIDERS: PCP Internal Medicine; Visit Provider Nurse Practitioner
DX: R09.89 Other specified symptoms and signs involving the circulatory and respiratory systems (principal); R06.00 Dyspnea, unspecified
CPT/HCPCS: 71045

== ENCOUNTER 2023-06-10 10:31 | Outpatient (CLI) | payer MEDICARE, MEDICAID, SELFPAY ==
--- NOTE | 2023-06-10 10:57 | XR_ITS ---
FINAL REPORT CLINICAL HISTORY: recent fall, pain in right knee COMPARISON: None FINDINGS: RIGHT KNEE 3 views of the right knee were obtained. There is no acute fracture or dislocation. Osteopenia is noted. There is moderate tricompartmental degenerative change. Chondrocalcinosis is noted. Soft tissues are unremarkable. IMPRESSION: No acute bony abnormality. Reviewed, Interpreted and Dictated by Marisa Adamson MD Transcribed by Yasmine Lee Authenticated and [facility]
== END 2023-06-10 23:59 | disposition home or self-care (01) ==
LOC: RAD 10:32
PROVIDERS: PCP Internal Medicine; Visit Provider Nurse Practitioner
DX: M25.561 Pain in right knee; Z91.81 History of falling
CPT/HCPCS: 73562

== ENCOUNTER 2023-12-13 10:40 | Outpatient (CLI) | payer MEDICARE, MEDICAID, SELFPAY ==
[2023-12-13 11:21] LABS: Basophils # 0.1 K/mm3 (0-0.2); Eosinophils # 0.2 K/mm3 (0.0-0.4); Eosinophils % 1.9 % (0.1-12.0); Hematocrit 42.9 % (42.0-52.0); Hemoglobin 13.9 g/dL (14.1-18.0); Lymphocytes # 2.2 K/mm3 (0.7-4.5); Lymphocytes % 24.9 % (10-50); Mean Corpuscular HGB Conc 32.5 g/dL (31.8-35.4); Mean Corpuscular Hemoglobin 27.7 pg (27.0-31.2); Mean Corpuscular Volume 85.3 fl (80-94); Mean Platelet Volume 7.2 fl (7.4-10.4); Monocytes # 0.5 K/mm3 (0.1-1.0); Monocytes % 5.8 % (1.7-9.3); Neutrophils # 5.9 K/mm3 (1.8-7.8); Neutrophils % 66.4 % (37.0-80.0); Platelet Count 551 K/mm3 (142-424); Red Blood Count 5.03 M/mm3 (4.60-6.20); Red Cell Distribution Width 13.9 % (11.5-17.5); White Blood Count 8.9 K/mm3 (4.8-10.8)
[2023-12-13 11:27] LABS: Chloride 96 mmol/L (98-107); Sodium 137 mmol/L (136-145)
[2023-12-13 11:28] LABS: Potassium 4.4 mmoL/L (3.5-5.1)
[2023-12-13 11:30] LABS: Alanine Aminotransferase 23 U/L (12-78); Anion Gap 11.4 mEq/L (5-15); Aspartate Amino Transferase 30 U/L (17-59); Bilirubin,Unconjugated 0.6 mg/dL (0.0-1.1); Blood Urea Nitrogen 36 mg/dl (9-20); Carbon Dioxide 34 mmol/L (22.0-30.0); Cholesterol 191 mg/dl (140-200); Estimated Glomerular Filt Rate 65 ml/min (>60); GFR (African American) 79 ML/MIN (>60); Total Protein,Serum 7.1 g/dl (6.3-8.2); Triglycerides 165 mg/dl (30-150); VLDL Cholesterol 33 mg/dL (0-40)
[2023-12-13 11:31] LABS: Alkaline Phosphatase 61 U/L (38-126); Bilirubin,Direct 0.2 mg/dl (0.0-0.4); Bilirubin,Indirect 0.5 mg/dL (0.0-0.9); Bilirubin,Total 0.7 mg/dl (0.2-1.3); Calcium 9.4 mg/dl (8.4-10.2); Chol/HDL Ratio 4.4 (1-3.5); Glucose 120 mg/dl (74-100); HDL Cholesterol 43 mg/dl (40-60); Magnesium 1.7 mg/dl (1.6-2.3)
[2023-12-13 11:47] LABS: Free T4 (Free Thyroxine) 1.15 ng/dl (0.78-2.19)
[2023-12-13 12:01] LABS: Thyroid Stimulating Hormone 1.57 uIU/mL (0.465-4.68)
== END 2023-12-13 23:59 | disposition home or self-care (01) ==
LOC: LAB 10:42
PROVIDERS: Nurse Practitioner; PCP Family Medicine; Visit Provider Physician Assistant
DX: I10 Essential (primary) hypertension (principal); R06.00 Dyspnea, unspecified; I50.9 Heart failure, unspecified; I51.89 Other ill-defined heart diseases; I25.84 Coronary atherosclerosis due to calcified coronary lesion; D64.9 Anemia, unspecified; I50.32 Chronic diastolic (congestive) heart failure; I25.118 Atherosclerotic heart disease of native coronary artery with other forms of angina pectoris
CPT/HCPCS: 36415; 80048; 80061; 80076; 83735; 84439; 84443; 85025

== ENCOUNTER 2023-12-24 12:47 | Outpatient (CLI) | payer MEDICARE, MEDICAID, SELFPAY ==
--- NOTE | 2023-12-24 12:51 | CA_ITS ---
APPROVED REPORT EXAM: Comprehensive 2D, Doppler, and color-flow Echocardiogram Shoe Repairer: Ignacia Kingston RDCS Ht: 5 ft 7 in Wt: 224lbs BSA: 2.12 BP: 137/66 mmHg Indications: DYSPNEA,CHF,LBBB,VT,COPD,EDEMA TDS PT CONFINED TO WHEELCHAIR M-Mode Dimensions RVDd 1.86 cm (0.9-2.6) LA Diam 3.15 cm (1.9-4.0) LVDd 7.12 cm (3.5-5.7) LVDs 5.62 cm (3.5-5.7) IVSd 1.50 cm (0.6-1.1) PWd 1.24 cm (0.6-1.1) EF (Teich) 41.60% FS 21.10% EDV (Teich) 265.40 mL ESV (Teich) 154.90 mL LV Diastology E Decel Time 223 (160-240 msec) E/A Ratio 0.8 Aortic Valve RACHEL Index 1.54 cm2/m2 AoV Peak Herberth. 156.0 (50-130 cm/s) AO Peak GR. 9.80 mmHg AO Mean GR. 4.80 (<5 mmHg) AO VTI 24.4 (18-25 cm) RACHEL (VTI) 3.35 (2.5-4.5 cm2) Mitral Valve MV E Max Herberth. 42.0 (40-130 cm/s) MV A Velocity 51.0 (40-130 cm/s) E/A Ratio 0.83 MV PHT 65.0 ms Left Ventricle The left ventricle is normal size. The left ventricular systolic function is normal. The left ventricular ejection fraction is within the normal range. There is increased LV wall thickness. The septum is asynchronous. Diastolic function is indeterminate. LVEF is 55%. Right Ventricle The right ventricle is not very well-visualized, but grossly appears normal in size and function. Atria The left atrium size is normal. The right atrium is not well-visualized. Aortic Valve The aortic valve is mildly thickened. There is no aortic valvular stenosis. Trace aortic regurgitation. Mitral Valve The mitral valve leaflets are mildly thickened. No evidence of mitral valve stenosis. Trace mitral regurgitation. Tricuspid Valve The tricuspid valve leaflets are not well-visualized. Trace tricuspid regurgitation. There is insufficient TR jet to estimate RVSP. Pulmonic Valve The pulmonic valve is not well-visualized. Great Vessels The aortic root is not well-visualized. The IVC is not well-visualized. Pericardium There is no pericardial effusion. Other Information Study Quality: Technically Difficult Conclusion Technically difficult study due to poor acoustic windows and patient positioning. Grossly, normal biventricular systolic function. No evidence of significant valvular stenosis or regurgitation in the visualized valves. Electronically signed by : Val Goodson MD 01/04/2024 11:12:06
== END 2023-12-24 23:59 | disposition home or self-care (01) ==
LOC: RT 12:48
PROVIDERS: PCP Family Medicine; Visit Provider Nurse Practitioner
DX: I51.89 Other ill-defined heart diseases (principal)
CPT/HCPCS: 93306

== ENCOUNTER 2024-05-24 08:00 | Outpatient (CLI) | payer MEDICARE, MEDICAID, SELFPAY ==
[2024-05-24 08:10] LABS: Basophils # 0.1 K/mm3 (0-0.2); Basophils % 0.9 % (0.1-2.0); Eosinophils # 0.3 K/mm3 (0.0-0.4); Eosinophils % 3.5 % (0.1-12.0); Hematocrit 42.6 % (42.0-52.0); Hemoglobin 13.4 g/dL (14.1-18.0); Lymphocytes # 2.4 K/mm3 (0.7-4.5); Lymphocytes % 24.6 % (10-50); Mean Corpuscular HGB Conc 31.5 g/dL (31.8-35.4); Mean Corpuscular Hemoglobin 26.6 pg (27.0-31.2); Mean Corpuscular Volume 84.5 fl (80-94); Mean Platelet Volume 8.5 fl (7.4-10.4); Monocytes # 0.8 K/mm3 (0.1-1.0); Monocytes % 8.4 % (1.7-9.3); Neutrophils # 6.1 K/mm3 (1.8-7.8); Neutrophils % 62.3 % (37.0-80.0); Nucleated Red Blood Cells # 0 10^3/uL; Nucleated Red Blood Cells % 0 %; Platelet Count 505 K/mm3 (142-424); Red Blood Count 5.04 M/mm3 (4.60-6.20); Red Cell Distribution Width 13.1 % (11.5-17.5); Red Cell Distribution Width-SD 40.3 fL; White Blood Count 9.8 K/mm3 (4.8-10.8)
[2024-05-24 08:47] LABS: Albumin Level 3.4 g/dl (3.5-5.0); Chloride 96 mmol/L (98-107); Sodium 135 mmol/L (136-145)
[2024-05-24 08:48] LABS: Potassium 4.6 mmoL/L (3.5-5.1)
[2024-05-24 08:50] LABS: Alanine Aminotransferase 23 U/L (12-78); Albumin/Globulin Ratio 1.1 (1.1-1.8); Alkaline Phosphatase 62 U/L (38-126); Anion Gap 11.6 mEq/L (5-15); Aspartate Amino Transferase 28 U/L (17-59); Bilirubin,Total 0.4 mg/dl (0.2-1.3); Blood Urea Nitrogen 22 mg/dl (9-20); Carbon Dioxide 32 mmol/L (22.0-30.0); Cholesterol 192 mg/dl (140-200); Estimated Glomerular Filt Rate 82 ml/min (>60); GFR (African American) 99 ML/MIN (>60); Globulin 3.2 g/dL (1.3-3.2); Iron 54 ug/dL (49-181); Total Protein,Serum 6.6 g/dl (6.3-8.2); Triglycerides 143 mg/dl (30-150); VLDL Cholesterol 29 mg/dL (0-40)
[2024-05-24 08:51] LABS: Calcium 9.5 mg/dl (8.4-10.2); Chol/HDL Ratio 4.2 (1-3.5); Glucose 86 mg/dl (74-100); HDL Cholesterol 46 mg/dl (40-60)
[2024-05-24 09:02] LABS: Direct LDL Cholesterol 121.45 mg/dL (100-129)
[2024-05-24 09:08] LABS: Total Iron Binding Capacity 199 ug/dL (261-462)
[2024-05-24 09:26] LABS: Ferritin 44.9 ng/ml (17.9-464)
== END 2024-05-24 23:59 | disposition home or self-care (01) ==
PROVIDERS: PCP Nurse Practitioner Family; Visit Provider Nurse Practitioner Family
DX: D64.9 Anemia, unspecified (principal); I11.0 Hypertensive heart disease with heart failure; I25.10 Atherosclerotic heart disease of native coronary artery without angina pectoris; I50.9 Heart failure, unspecified
CPT/HCPCS: 36415; 80053; 80061; 82728; 83540; 83550; 85025

== ENCOUNTER 2024-08-02 07:36 | Outpatient (CLI) | payer MEDICARE, MEDICAID, SELFPAY ==
--- OUTSIDE RECORDS SUMMARY | 2024-08-02 07:39 | XMS_ITS | Clinical Summary ---
Author Organization [facility] Address [address] [place] [address] Phone Care Team Providers Care Camera Machinist Name Role Phone Unavailable Primary Care Provider Unavailabl e Medications * This document contains information received from the source organization and may not represent a complete record from that organization. No known medications Active Problems No known active problems Social History Tobacco Use Types Packs/Day Years Used Date Smoking Tobacco: Every Day Cigarettes Tobacco Cessation:Ready to Q uit: No; Counseling Given: No Alcohol Use Standard Drinks/Week Comments Not Currently 0 (1 standard drink = 0.6 oz pur e alcohol) Sex and Gender Information Value Date Recorded Sex Assigned at Not on file Legal Sex Male 8:08 PM EDT Gender Identity Not on file Sexual Orientation Not on file Obstetrics History Plan of Treatment Health Maintenance Due Date Last Done Comments Wellness Exam Medicare 1953 Hepatitis C Screening 1966 DTaP/TDaP/Td (1 - Tdap) 1967 Pneumococcal Vaccine 50+ (1 of 2 - PCV) 1967 Zoster (1 of 2) 1998 RSV or 60+ (1 - 1-d ose 75+ series) 2023 COVID-19 Vaccine ( - 2023-2 5 season) 2023 Influenza Vaccine (Season Ended) 2024 Hepatitis B Vaccine Aged Out No longe r eligible based on patient's age to complete this topic Meningococcal B Vaccine Aged Out No l onger eligible based on patient's age to complete this topic Insurance MEDICARE [place] PART A AND B MEDICAID [place] * Guarantor: Vidal Noe Account Type Relation to Patient Date of Phone Billing Address [place] Personal Family Self
[2024-08-02 08:20] LABS: Cholesterol 175 mg/dl (140-200); Triglycerides 138 mg/dl (30-150); VLDL Cholesterol 28 mg/dL (0-40)
[2024-08-02 08:21] LABS: Chol/HDL Ratio 3.8 (1-3.5); HDL Cholesterol 46 mg/dl (40-60)
[2024-08-02 08:32] LABS: Direct LDL Cholesterol 89.24 mg/dL (100-129)
[2024-08-02 09:31] LABS: Hemoglobin A1C 7.3 % (4.0-6.0)
== END 2024-08-02 23:59 | disposition home or self-care (01) ==
PROVIDERS: PCP Family Medicine; Visit Provider Nurse Practitioner Family
DX: E78.5 Hyperlipidemia, unspecified (principal); Z13.1 Encounter for screening for diabetes mellitus
CPT/HCPCS: 36415; 80061; 83036